=== PATIENT | male | born 1950 | race Hispanic/Latino ===

== ENCOUNTER 2018-10-05 23:35 | Inpatient (IN) | payer MEDICARE ==
--- NOTE | 2018-10-05 23:54 | Emergency Department Report ---
ED Chest Pain HPI - General Chief Complaint: Chest Pain Stated Complaint: CHEST PAIN Time Seen by Provider: 10/05/18 23:40 Source: EMS Mode of arrival: Stretcher Limitations: No Limitations - History of Present Illness Initial Comments: 68-year-old male with a past medical history of cardiac valve replacement and COPD presents from [facility] with complaints of chest pain. Chest pain began while trying to go to sleep prior to arrival. He still describes it as feeling like he was kicked in the left side of his chest. He had a second episode described as sharp prior to arrival. He denies shortness of breath, nausea, vomiting, diaphoresis, or syncope. Patient is hard of hearing and extremely poor historian. As per his history and physical examination from [facility] dated 10/09/2018 he has a history of heart valve replacement and Coumadin use. Patient does not recall having a heart valve replaced despite sternotomy scar and thinks he is on Coumadin because his blood is too thick. Patient received Ativan 0.5 mg by mouth prior to arrival provided by [facility]. Patient is unsure as to why he is currently at [facility] and denies suicidal ideation, homicidal ideation, or active psychosis. There is a sitter at the bedside.No pain reported at this time - Related Data Home Medications Medication Instructions Recorded Confirmed Last Taken ALBUTEROL Inhaler(NF) [VENTOLIN 2 puff INHALATION Q6HR PRN 10/06/18 10/06/18 Unknown Inhaler(NF)] Acetaminophen 2 tab PO Q4HR PRN 10/06/18 10/06/18 Unknown DUONEB *Not for PRN Use* 1 vial INHALATION Q8HR PRN 10/06/18 10/06/18 Unknown Haloperidol [Haldol] 5 mg PO Q4HR PRN 10/06/18 10/06/18 Unknown Magnesium Hydroxide [Milk of 30 ml PO Q2HR PRN 10/06/18 10/06/18 Unknown Magnesia] diphenhydrAMINE [Benadryl CAP] 50 mg PO Q4HR PRN 10/06/18 10/06/18 Unknown risperiDONE [Risperdal] 0.5 mg PO DAILY 10/06/18 10/06/18 Unknown risperiDONE [Risperdal] 1 mg PO HS 10/06/18 10/06/18 Unknown Allergies Allergy/AdvReac Type Severity Reaction Status Date / Time levofloxacin [From Levaquin] Allergy Unknown Verified 10/05/18 23:42 Penicillins Allergy Unknown Verified 10/05/18 23:42 Heart Score - HEART Score History: Slightly suspicious EKG: Non-specific Age: > 65 Risk factors: 1-2 risk factors Troponin: 1-3x normal limit HEART Score: 5 ED Review of Systems ROS: Stated complaint: CHEST PAIN Other details as noted in HPI Comment: All other systems reviewed and negative ED Past Medical Hx - Past Medical History Hx COPD: Yes - Surgical History Past Surgical History?: Yes Additional Surgical History: heart valve replacement - Social History Smoking Status: Current Every Day Smoker Substance Use Type: None - Medications Home Medications: Home Medications Medication Instructions Recorded Confirmed Last Taken Type ALBUTEROL Inhaler(NF) [VENTOLIN 2 puff INHALATION Q6HR PRN 10/06/18 10/06/18 Unknown History Inhaler(NF)] Acetaminophen 2 tab PO Q4HR PRN 10/06/18 10/06/18 Unknown History DUONEB *Not for PRN Use* 1 vial INHALATION Q8HR PRN 10/06/18 10/06/18 Unknown History Haloperidol [Haldol] 5 mg PO Q4HR PRN 10/06/18 10/06/18 Unknown History Magnesium Hydroxide [Milk of 30 ml PO Q2HR PRN 10/06/18 10/06/18 Unknown History Magnesia] diphenhydrAMINE [Benadryl CAP] 50 mg PO Q4HR PRN 10/06/18 10/06/18 Unknown History risperiDONE [Risperdal] 0.5 mg PO DAILY 10/06/18 10/06/18 Unknown History risperiDONE [Risperdal] 1 mg PO HS 10/06/18 10/06/18 Unknown History ED Physical Exam - General Limitations: No Limitations - Other Other exam information: General: No limitations, patient is alert in no acute distress Head exam: Atraumatic, normocephalic Eyes exam: Normal appearance, ENT: Moist mucous membrane Neck exam: Normal inspection, full range of motion, no meningismus nontender Respiratory exam: Clear to auscultation bilateral, no wheezes, rales, crackles Cardiovascular: Normal rate and rhythm, positive murmur, sternotomy scar Abdomen: Soft, nondistended, and nontender, with normal bowel sounds, no rebound, or guarding Extremity: Full range of motion normal inspection no deformity, no calf tenderness or edema Back: Normal Inspection, full range of motion, no tenderness Neurologic: Alert, oriented x3, cranial nerves intact, no motor or sensory deficit Psychiatric: normal affect, normal mood Skin: Warm, dry, intact ED Course Vital Signs 10/05/18 10/05/18 10/06/18 23:50 23:54 01:17 Temperature 98.2 F Pulse Rate 79 72 Respiratory 15 15 Rate Blood Pressure 151/72 Blood Pressure 151/72 [Left] O2 Sat by Pulse 100 Oximetry - Consultations Consultation #1: 10/06/18 01:35 Case d/w cardiology Dr Zepeda, consult ordered KARYN score - Karyn Score Age > 65: (0) No Aspirin use within the Past 7 Days: (0) No 3 or more CAD Risk Factors: (0) No 2 or more Angina events in past 24 hrs: (1) Yes Known CAD with more than 50% Stenosis: (0) No Elevated Cardiac Markers: (1) Yes ST Deviation Greater than 0.5mm: (0) No KARYN Score: 2 ED Medical Decision Making - Lab Data Result diagrams: 10/06/18 00:09 10/06/18 00:09 Lab Results 10/06/18 10/06/18 10/06/18 Range/Units 00:09 00:09 00:09 WBC 10.5 (4.5-11.0) K/mm3 RBC 4.33 (3.65-5.03) M/mm3 Hgb 13.4 (11.8-15.2) gm/dl Hct 39.3 (35.5-45.6) % MCV 91 (84-94) fl MCH 31 (28-32) pg MCHC 34 (32-34) % RDW 14.6 (13.2-15.2) % Plt Count 272 (140-440) K/mm3 Lymph % (Auto) 17.8 (13.4-35.0) % [place] % (Auto) 8.8 H (0.0-7.3) % Eos % (Auto) 1.8 (0.0-4.3) % Baso % (Auto) 1.4 (0.0-1.8) % Lymph # 1.9 (1.2-5.4) K/mm3 [place] # 0.9 H (0.0-0.8) K/mm3 Eos # 0.2 (0.0-0.4) K/mm3 Baso # 0.1 (0.0-0.1) K/mm3 Seg Neutrophils % 70.2 H (40.0-70.0) % Seg Neutrophils # 7.4 (1.8-7.7) K/mm3 PT 12.8 (12.2-14.9) Sec. INR 0.91 (0.87-1.13) APTT 34.8 (24.2-36.6) Sec. Sodium 140 (137-145) mmol/L Potassium 4.1 (3.6-5.0) mmol/L Chloride 104.6 (98-107) mmol/L Carbon Dioxide 26 (22-30) mmol/L Anion Gap 14 mmol/L BUN 14 (9-20) mg/dL Creatinine 0.9 (0.8-1.5) mg/dL Estimated GFR > 60 ml/min BUN/Creatinine Ratio 16 % Glucose 111 H (75-100) mg/dL Calcium 8.7 (8.4-10.2) mg/dL Total Creatine Kinase 74 (55-170) units/L CK-MB (CK-2) 2.2 (0.0-4.0) ng/mL CK-MB (CK-2) Rel Index 2.9 (0-4) Troponin T 0.802 H* (0.00-0.029) ng/mL Triglycerides 57 (2-149) mg/dL Cholesterol 156 (50-199) mg/dL LDL Cholesterol Direct 106 (50-130) mg/dL HDL Cholesterol 46 (40-59) mg/dL Cholesterol/HDL Ratio 3.39 % - EKG Data -: EKG Interpreted by Tx EKG shows normal: sinus rhythm, axis (qrs 48), QRS complexes (qrsd 89), ST-T waves (no stemi, possbile anteroseptal infarct) Rate: normal (69) - EKG Data When compared to previous EKG there are: previous EKG unavailable - Radiology Data Radiology results: report reviewed PROCEDURE: XR CHEST 1V AP TECHNIQUE: Chest radiograph single view. HISTORY: Chest Pain COMPARISONS: None . FINDINGS: Heart: Normal. Mediastinum/Vessels: Multiple sternal wires are present. Lungs/Pleural space: Normal. Bony thorax: No acute osseous abnormality. Life support devices: None. IMPRESSION: No acute cardiopulmonary abnormality. - Medical Decision Making Pt poor insight about his previous past medical history and reason for sternotomy. Medical records provided by psych states that patient has had a valve replacement and has been on Coumadin. Coags are normal today. Patient treated with nitroglycerin paste, aspirin, heparin drip, and cardiology consultation for mild elevation in troponin with associated chest pain. No signs of ST elevation or renal insufficiency. repeat troponin pending as per protocol - Differential Diagnosis CA, unstable angina, PE, atypical chest Critical Care Time: No Critical care attestation.: If time is entered above; I have spent that time in minutes in the direct care of this critically ill patient, excluding procedure time. ED Disposition Clinical Impression: Chest pain, Elevated troponin, Psychiatric inpatient, History of heart valve replacement Disposition: OP ADMIT IP TO THIS HOSP Is pt being admited?: Yes Does the pt Need Aspirin: Yes Condition: Stable Time of Disposition: 01:49 (Dr Osei/hosp)
--- NOTE | 2018-10-06 00:35 | XRay Report ---
PROCEDURE: XR CHEST 1V AP TECHNIQUE: Chest radiograph single view. HISTORY: Chest Pain COMPARISONS: None . FINDINGS: Heart: Normal. Mediastinum/Vessels: Multiple sternal wires are present. Lungs/Pleural space: Normal. Bony thorax: No acute osseous abnormality. Life support devices: None. IMPRESSION: No acute cardiopulmonary abnormality. This document is electronically signed by Jannette Sparks DO., October 06 2018 12:33:16 AM ET
[2018-10-06 00:45] LABS: Creatine Kinase MB 2.2 ng/mL (0.0-4.0)
[2018-10-06 00:47] LABS: BUN/Creatinine Ratio 16; Blood Urea Nitrogen 14 mg/dL (9-20); Calcium 8.7 mg/dL (8.4-10.2); Hemolysis Index 3
[2018-10-06] MEDS ORDERED: ASPIRIN PO ONE ×3 (01:01→10:15)
[2018-10-06] MEDS ORDERED: NITRO-BID 2% TP ONE (01:02)
[2018-10-06 01:35] LABS: Basophils # (Auto) 0.1 K/mm3 (0.0-0.1); Basophils % (Auto) 1.4 % (0.0-1.8); Eosinophils # (Auto) 0.2 K/mm3 (0.0-0.4); Eosinophils % (Auto) 1.8 % (0.0-4.3); Hematocrit 39.3 % (35.5-45.6); Hemoglobin 13.4 gm/dl (11.8-15.2); INR 0.91 (0.87-1.13); Lymphocytes # (Auto) 1.9 K/mm3 (1.2-5.4); Lymphocytes % (Auto) 17.8 % (13.4-35.0); Mean Corpuscular HGB Conc 34 % (32-34); Mean Corpuscular Volume 91 fl (84-94); Monocytes # (Auto) 0.9 K/mm3 (0.0-0.8); Monocytes % (Auto) 8.8 % (0.0-7.3); Platelet Count 272 K/mm3 (140-440); Red Blood Count 4.33 M/mm3 (3.65-5.03); Red Cell Distribution Width 14.6 % (13.2-15.2)
[2018-10-06 01:36] LABS: Partial Thromboplastin Time 34.8 Sec. (24.2-36.6)
[2018-10-06 01:37] LABS: Chol/HDL Ratio 3.39 %; HDL Cholesterol 46 mg/dL (40-59); LDL Cholesterol,Direct 106 mg/dL (50-130)
[2018-10-06] MEDS ORDERED: HEPARIN 10,000 UNITS/10 ML IV ONE (01:37)
[2018-10-06] MEDS ORDERED: HEPARIN/ 0.45% NACL-25,000 UNIT/500 ML 25,000 UNIT/500 ML BAG IV SCH (02:00)
--- NOTE | 2018-10-06 02:17 | History and Physical Report ---
History of Present Illness Date of examination: 10/06/18 History of present illness: 68-year-old man with a history of COPD, valve replacement on Coumadin comes emergency room from [facility] with complaints of chest pain. Pain is on the left chest which she described as pressure sensation, intermittent every 2 minutes, no radiation, intensity 6/10, cannot identify exacerbating or relieving factors. He admits to nausea, diaphoresis, no shortness breath, palpitations. Patient is at [place] [id number] for psychosis Review of systems Constitutional: no weight loss, chills, fever Ears, eyes, nose, mouth and throat: no nasal congestion, no nasal discharge, no sinus pressure, no vision change, no red eye. Neck: No neck pain or rigidity. Cardiovascular: no palpitations, +chest pain Respiratory: no cough, shortness of breath Gastrointestinal: no hematochezia, abdominal pain Genitourinary : no frequency , no hematuria Musculoskeletal: no joint swelling or muscle ache Integumentary: no rash, no pruritis Neurological: no parathesias, no focal weakness Endocrine: no cold or heat intolerance, no polyuria or polydipsia Hematologic/Lymphatic: no easy bruising, no easy bleeding, no gland swelling Allergic/Immunologic: no urticaria, no angioedema. PAST MEDICAL HISTORY:COPD, valve replacement on Coumadin PAST SURGICAL HISTORY: Hip replacement 2, bowel surgery SOCIAL HISTORY: Denies alcohol, + marijuana and, smokes half pack a day FAMILY HISTORY: Hypertension Medications and Allergies Allergies Allergy/AdvReac Type Severity Reaction Status Date / Time levofloxacin [From Levaquin] Allergy Unknown Verified 10/05/18 23:42 Penicillins Allergy Unknown Verified 10/05/18 23:42 Home Medications Medication Instructions Recorded Confirmed Last Taken Type ALBUTEROL Inhaler(NF) [VENTOLIN 2 puff INHALATION Q6HR PRN 10/06/18 10/06/18 Unknown History Inhaler(NF)] Acetaminophen 2 tab PO Q4HR PRN 10/06/18 10/06/18 Unknown History DUONEB *Not for PRN Use* 1 vial INHALATION Q8HR PRN 10/06/18 10/06/18 Unknown History Haloperidol [Haldol] 5 mg PO Q4HR PRN 10/06/18 10/06/18 Unknown History Magnesium Hydroxide [Milk of 30 ml PO Q2HR PRN 10/06/18 10/06/18 Unknown History Magnesia] diphenhydrAMINE [Benadryl CAP] 50 mg PO Q4HR PRN 10/06/18 10/06/18 Unknown Histo ry risperiDONE [Risperdal] 0.5 mg PO DAILY 10/06/18 10/06/18 Unknown History risperiDONE [Risperdal] 1 mg PO HS 10/06/18 10/06/18 Unknown History Active Meds: Active Medications Heparin Sodium/Sodium Chloride (Heparin/ 0.45% Nacl-25,000 Unit/500 Ml) 25,000 unit in 500 mls @ 20 mls/hr IV TITRATE MILLI; Protocol Last Admin: 10/06/18 02:00 Dose: 1,000 units/hr, 20 mls/hr Documented by: Exam - Physical Exam Narrative exam: General Apperance: The patient lying in bed, breathing comfortable HEENT: Normocephalic, atraumatic. Pupils equally round and reactive to light, EOMI, no sclericterus or JVD or thyromegaly or nodule. , no carotid bruit, mucous membranes moist, no exudate or erythema Heart: S1-S2, regular is rhythm Lungs: Clear to auscultation bilaterally, breathing comfortable Abdomen: Positive bowel sounds, soft, nontender, nondistended, no organomegaly Extremities: No edema cyanosis clubbing Skin: no rash, nodule, warm and dry Neuro: cranial nerves 2-12 intact, speech is fluent, motor/sensory intact - Constitutional Vitals: Temp Pulse Resp BP Pulse Ox 98.2 F 76 19 151/72 100 10/05/18 23:54 10/06/18 02:01 10/06/18 02:01 10/06/18 02:01 10/05/18 23:54 Results - Labs CBC & Chem 7: 10/06/18 00:09 10/06/18 00:09 Labs: Abnormal lab results 10/06/18 10/06/18 Range/Units 00:09 00:09 [place] % (Auto) 8.8 H (0.0-7.3) % [place] # 0.9 H (0.0-0.8) K/mm3 Seg Neutrophils % 70.2 H (40.0-70.0) % Glucose 111 H (75-100) mg/dL Troponin T 0.802 H* (0.00-0.029) ng/mL - Imaging and Cardiology EKG: image reviewed Chest x-ray: report reviewed Assessment and Plan Assessment NSTMI ValVE replacement with subtherapeutic INR COPD Psychosis Plan Admit to medicine Check cardiac enzymes, consult cardiology Start aspirin, [place] 1013 DVT prophylaxis
[2018-10-06] MEDS ORDERED: SODIUM CHLORIDE FLUSH SYRINGE 10 ML IV PRN (02:37)
[2018-10-06] MEDS ORDERED: TYLENOL PO PRN (02:37)
[2018-10-06] MEDS ORDERED: ZOFRAN IV PRN (02:37)
[2018-10-06 03:01] LABS: Basophils # (Auto) 0.2 K/mm3 (0.0-0.1); Basophils % (Auto) 2.4 % (0.0-1.8); Eosinophils # (Auto) 0.2 K/mm3 (0.0-0.4); Eosinophils % (Auto) 1.7 % (0.0-4.3); Hematocrit 39.1 % (35.5-45.6); Hemoglobin 13.2 gm/dl (11.8-15.2); Lymphocytes # (Auto) 2.3 K/mm3 (1.2-5.4); Lymphocytes % (Auto) 22.4 % (13.4-35.0); Mean Corpuscular HGB Conc 34 % (32-34); Mean Corpuscular Volume 92 fl (84-94); Monocytes # (Auto) 0.9 K/mm3 (0.0-0.8); Monocytes % (Auto) 8.8 % (0.0-7.3); Platelet Count 269 K/mm3 (140-440); Red Blood Count 4.27 M/mm3 (3.65-5.03); Red Cell Distribution Width 14.6 % (13.2-15.2)
[2018-10-06 03:25] LABS: BUN/Creatinine Ratio 17; Blood Urea Nitrogen 12 mg/dL (9-20); Calcium 8.5 mg/dL (8.4-10.2); Hemolysis Index 8
[2018-10-06 03:55] LABS: Creatine Kinase MB 2.2 ng/mL (0.0-4.0)
[2018-10-06] MEDS: BABY ASPIRIN PO SCH (09:57)
[2018-10-06] MEDS ORDERED: NACL 0.9% 500 ML 500 ML IV SCH (10:00)
[2018-10-06] MEDS: SODIUM CHLORIDE FLUSH SYRINGE 10 ML IV SCH ×2 (10:06→22:30)
[2018-10-06] MEDS ORDERED: HEPARIN 10,000 UNITS/10 ML ONE (10:16)
[2018-10-06] MEDS ORDERED: CALAN ONE (10:16)
[2018-10-06] MEDS ORDERED: HEPARIN/NS 5000 UNIT/500ML(CATH LAB) 1,000 ML IR ONE (10:16)
[2018-10-06] MEDS ORDERED: XYLOCAINE 2% INFILTRATI ONE (10:17)
[2018-10-06] MEDS ORDERED: NITROGLYCERIN SYRINGE 3 ML ONE ×2 (10:17→12:01)
[2018-10-06] MEDS ORDERED: VERSED ONE ×2 (10:22→11:41)
[2018-10-06] MEDS ORDERED: SUBLIMAZE ONE ×2 (10:22→11:41)
[2018-10-06] MEDS ORDERED: NACL 0.9% 500 ML 500 ML ONE (10:23)
--- NOTE | 2018-10-06 11:00 | Consultation ---
History of Present Illness Consult date: 10/06/18 Requesting physician: ANA MARÍA IZAGUIRRE Consult reason: chest pain History of present illness: He claims that he started experiencing intermittent precordial chest pain associated with diaphoresis lasst night. Although he has a median sternotomy scar and sternotomy wires on CXR, he does not recall undergoing any cardiac s urgery. Past History Past Medical History: other (GI bleed, cardiac surgery) Past Surgical History: total hip replacement Social history: denies: smoking, alcohol abuse Family history: no significant family history Medications and Allergies Allergies Allergy/AdvReac Type Severity Reaction Status Date / Time levofloxacin [From Levaquin] Allergy Unknown Verified 10/05/18 23:42 Penicillins Allergy Unknown Verified 10/05/18 23:42 Home Medications Medication Instructions Recorded Confirmed Last Taken Type ALBUTEROL Inhaler(NF) [VENTOLIN 2 puff INHALATION Q6HR PRN 10/06/18 10/06/18 Unknown History Inhaler(NF)] Acetaminophen 2 tab PO Q4HR PRN 10/06/18 10/06/18 Unknown History DUONEB *Not for PRN Use* 1 vial INHALATION Q8HR PRN 10/06/18 10/06/18 Unknown History Haloperidol [Haldol] 5 mg PO Q4HR PRN 10/06/18 10/06/18 Unknown History Magnesium Hydroxide [Milk of 30 ml PO Q2HR PRN 10/06/18 10/06/18 Unknown History Magnesia] diphenhydrAMINE [Benadryl CAP] 50 mg PO Q4HR PRN 10/06/18 10/06/18 Unknown History risperiDONE [Risperdal] 0.5 mg PO DAILY 10/06/18 10/06/18 Unknown History risperiDONE [Risperdal] 1 mg PO HS 10/06/18 10/06/18 Unknown History Active Meds: Active Medications Acetaminophen (Tylenol) 650 mg PO Q4H PRN PRN Reason: Pain MILD(1-3)/Fever >100.5/ALFONSO Aspirin (Baby Aspirin) 81 mg PO QDAY MILLI Last Admin: 10/06/18 09:57 Dose: Not Given Documented by: Heparin Sodium/Sodium Chloride (Heparin/ 0.45% Nacl-25,000 Unit/500 Ml) 25,000 unit in 500 mls @ 20 mls/hr IV TITRATE MILLI; Protocol Last Titration: 10/06/18 09:49 Dose: 1,000 units/hr, 20 mls/hr Documented by: Sodium Chloride (Nacl 0.9% 500 Ml) 500 mls @ 50 mls/hr IV DIRECT MILLI Stop: 10/06/18 19:59 Ondansetron HCl (Zofran) 4 mg IV Q4H PRN PRN Reason: Nausea And Vomiting Oxycodone/Acetaminophen (Percocet 5/325) 1 tab PO Q6H PRN PRN Reason: Pain, Moderate (4-6) Sodium Chloride (Sodium Chloride Flush Syringe 10 Ml) 10 ml IV BID IMLLI Last Admin: 10/06/18 10:06 Dose: Not Given Documented by: Sodium Chloride (Sodium Chloride Flush Syringe 10 Ml) 10 ml IV PRN PRN PRN Reason: LINE FLUSH Review of Systems Constitutional: no fever, no chills Ears, nose, mouth and throat: no ear pain, no ear discharge, no sore throat Cardiovascular: chest pain Respiratory: no cough, no hemoptysis, no shortness of breath Gastrointestinal: no abdominal pain, no nausea, no vomiting, no diarrhea, no constipation Genitourinary Male: no dysuria, no urinary frequency Musculoskeletal: no neck stiffness, no neck pain, no myalgias Integumentary: no rash Neurological: no weakness, no parathesias, no headaches Endocrine: no cold intolerance, no heat intolerance Hematologic/Lymphatic: no easy bruising, no easy bleeding Allergic/Immunologic: no urticaria, no wheezing Physical Examination Vital Signs Last Vital Signs Temp 98.2 F 10/05/18 23:54 Pulse 61 10/06/18 07:41 Resp 19 10/06/18 07:41 BP 103/51 10/06/18 07:41 Pulse Ox 97 10/06/18 09:33 General appearance: no acute distress HEENT: Positive: EOMI, Normocephaly, Mucus Membranes Moist Neck: Positive: neck supple, trachea midline, Carotid Upstroke (full) Cardiac: Positive: Reg Rate and Rhythm, S1/S2 Lungs: Positive: clear to auscultation Neuro: Positive: Grossly Intact Abdomen: Positive: Soft, Active Bowel Sounds. Negative: Tender Skin: Positive: Clear. Negative: Rash Musculoskeletal: Normal Range of Motion Extremities: Present: normal. Absent: edema Results 10/06/18 02:48 10/06/18 02:48 Cardiac Enzymes 10/06/18 10/06/18 10/06/18 Range/Units 00:09 02:48 08:01 CK-MB (CK-2) 2.2 2.2 2.0 (0.0-4.0) ng/mL Coagulation 10/06/18 Range/Units 00:09 PT 12.8 (12.2-14.9) Sec. INR 0.91 (0.87-1.13) APTT 34.8 (24.2-36.6) Sec. Lipids 10/06/18 Range/Units 00:09 Triglycerides 57 (2-149) mg/dL Cholesterol 156 (50-199) mg/dL HDL Cholesterol 46 (40-59) mg/dL Cholesterol/HDL Ratio 3.39 % CBC 10/06/18 10/06/18 Range/Units 00:09 02:48 WBC 10.5 10.2 (4.5-11.0) K/mm3 RBC 4.33 4.27 (3.65-5.03) M/mm3 Hgb 13.4 13.2 (11.8-15.2) gm/dl Hct 39.3 39.1 (35.5-45.6) % Plt Count 272 269 (140-440) K/mm3 Lymph # 1.9 2.3 (1.2-5.4) K/mm3 [place] # 0.9 H 0.9 H (0.0-0.8) K/mm3 Eos # 0.2 0.2 (0.0-0.4) K/mm3 Baso # 0.1 0.2 H (0.0-0.1) K/mm3 Comprehensive Metabolic Panel 10/06/18 10/06/18 Range/Units 00:09 02:48 Sodium 140 138 (137-145) mmol/L Potassium 4.1 4.0 (3.6-5.0) mmol/L Chloride 104.6 104.4 (98-107) mmol/L Carbon Dioxide 26 22 (22-30) mmol/L BUN 14 12 (9-20) mg/dL Creatinine 0.9 0.7 L (0.8-1.5) mg/dL Glucose 111 H 110 H (75-100) mg/dL Calcium 8.7 8.5 (8.4-10.2) mg/dL - Imaging and Cardiology EKG: image reviewed EKG interpretations - Telemetry EKG Rhythm: Sinus Rhythm - EKG Sinus rhythms and dysrhythmias: sinus rhythm Supraventricular dysrhythmia: atrial premature complexe Assessment and Plan Initiate anti-ischemic regimen. Schedule coronary angiography. - Patient Problems (1) Acute non-ST elevation myocardial infarction (NSTEMI) Current Visit: Yes Status: Acute (2) Chest pain Current Visit: Yes Status: Acute Qualifiers: Chest pain type: precordial pain Qualified Code(s): R07.2 - Precordial pain (3) Thrombocytopenia Current Visit: Yes Status: Acute (4) History of open heart surgery Current Visit: Yes Status: Chronic (5) H/O: GI bleed Current Visit: Yes Status: Chronic (6) Psychiatric inpatient Current Visit: Yes Status: Acute
--- NOTE | 2018-10-06 11:36 | Progress Note ---
Hospitalist Physical - Physical exam Narrative exam: GEN: Not in acute distress, lying in bed HEENT: Normocephalic, atraumatic, Neck: supple, No JVD Lungs: Clear to auscultation bilat, no crackles, no wheeze Abd:soft, non tender, non distended, normal bowel sounds Ext: No edema, no clubbing, no cyanosis Neuro:Awake,alert,oriented X 3, no focal signs Skin:No rash Psych: normal mood - Constitutional Vitals: Temp Pulse Resp BP Pulse Ox 98.2 F 61 19 103/51 97 10/05/18 23:54 10/06/18 07:41 10/06/18 07:41 10/06/18 07:41 10/06/18 09:33 General appearance: Present: no acute distress Results - Labs CBC & Chem 7: 10/06/18 02:48 10/06/18 02:48 Labs: Laboratory Last Values WBC 10.2 K/mm3 (4.5-11.0) 10/06/18 02:48 RBC 4.27 M/mm3 (3.65-5.03) 10/06/18 02:48 Hgb 13.2 gm/dl (11.8-15.2) 10/06/18 02:48 Hct 39.1 % (35.5-45.6) 10/06/18 02:48 MCV 92 fl (84-94) 10/06/18 02:48 MCH 31 pg (28-32) 10/06/18 02:48 MCHC 34 % (32-34) 10/06/18 02:48 RDW 14.6 % (13.2-15.2) 10/06/18 02:48 Plt Count 269 K/mm3 (140-440) 10/06/18 02:48 Lymph % (Auto) 22.4 % (13.4-35.0) 10/06/18 02:48 [place] % (Auto) 8.8 % (0.0-7.3) H 10/06/18 02:48 Eos % (Auto) 1.7 % (0.0-4.3) 10/06/18 02:48 Baso % (Auto) 2.4 % (0.0-1.8) H 10/06/18 02:48 Lymph # 2.3 K/mm3 (1.2-5.4) 10/06/18 02:48 [place] # 0.9 K/mm3 (0.0-0.8) H 10/06/18 02:48 Eos # 0.2 K/mm3 (0.0-0.4) 10/06/18 02:48 Baso # 0.2 K/mm3 (0.0-0.1) H 10/06/18 02:48 Seg Neutrophils % 64.7 % (40.0-70.0) 10/06/18 02:48 Seg Neutrophils # 6.6 K/mm3 (1.8-7.7) 10/06/18 02:48 PT 12.8 Sec. (12.2-14.9) 10/06/18 00:09 INR 0.91 (0.87-1.13) 10/06/18 00:09 APTT 34.8 Sec. (24.2-36.6) 10/06/18 00:09 Heparin Anti-Xa Level 0.35 U.I./ml (0.3-0.7) 10/06/18 08:01 Sodium 138 mmol/L (137-145) 10/06/18 02:48 Potassium 4.0 mmol/L (3.6-5.0) 10/06/18 02:48 Chloride 104.4 mmol/L (98-107) 10/06/18 02:48 Carbon Dioxide 22 mmol/L (22-30) 10/06/18 02:48 Anion Gap 16 mmol/L 10/06/18 02:48 BUN 12 mg/dL (9-20) 10/06/18 02:48 Creatinine 0.7 mg/dL (0.8-1.5) L 10/06/18 02:48 Estimated GFR > 60 ml/min 10/06/18 02:48 BUN/Creatinine Ratio 17 % 10/06/18 02:48 Glucose 110 mg/dL (75-100) H 10/06/18 02:48 Calcium 8.5 mg/dL (8.4-10.2) 10/06/18 02:48 Total Creatine Kinase 64 units/L (55-170) 10/06/18 08:01 CK-MB (CK-2) 2.0 ng/mL (0.0-4.0) 10/06/18 08:01 CK-MB (CK-2) Rel Index 3.1 (0-4) 10/06/18 08:01 Troponin T 0.633 ng/mL (0.00-0.029) H* 10/06/18 08:01 Triglycerides 57 mg/dL (2-149) 10/06/18 00:09 Cholesterol 156 mg/dL (50-199) 10/06/18 00:09 LDL Cholesterol Direct 106 mg/dL (50-130) 10/06/18 00:09 HDL Cholesterol 46 mg/dL (40-59) 10/06/18 00:09 Cholesterol/HDL Ratio 3.39 % 10/06/18 00:09
[2018-10-06] MEDS ORDERED: ALUM-MAG HYDROX-SIMETH 200-200-20MG/5ML ONE (12:13)
[2018-10-06] MEDS ORDERED: PLAVIX ONE (12:13)
--- NOTE | 2018-10-06 13:24 | Cardiac Catherization Report ---
LEFT HEART CATHETERIZATION/PERCUTANEOUS CORONARY INTERVENTION/INTRAVASCULAR ULTRASOUND CLINICAL INFORMATION: This is a 68-year-old patient, who was at [facility] and complaints of chest pain, was brought in and had abnormal troponin suggestive of [id number] MT with some shortness of breath with acute diastolic dysfunction. The patient brought to the photo lab manager. Currently, chest pain free. The patient is a poor historian, but looks like he had sternotomy wires placed in and the patient was done under moderate sedation, 1 mg Versed, and 50 mcg of fentanyl. Total sedation time was 32 minutes, started at 11:39 a.m., finished at 12:13 p.m. Left heart catheterization performed via the right femoral artery, sterile technique, local anesthesia, and a 5-[place] groin sheath inserted. We see on fluoroscopy, a mechanical aortic valve that is single leaflet that is opening. Left system engaged with a JL4 catheter. Left main is large and patent, bifurcates into large LAD that is patent from proximally and distally. Diagonal 1, diagonal 2 and diagonal 3 are small caliber vessel, patent. Circumflex is a jidio-er-fukaos caliber vessel, moderate to severe tortuosity patent. OM1 and OM2 are small caliber vessels, patent with moderate to severe tortuosity. RCA engaged with JR4, is a large dominant vessel with moderate tortuosity, proximal is patent, mid 90% distal at the bifurcation has a 95% lesion going to a large caliber PDA, PLV and a small PDA. LV gram done with a mechanical aortic valve. So, percutaneous/intravascular stent of the RCA. 1. Exchange of 5-[place] sheath for a 6-[place] African sheath. 2. Engaged with a 6-[place] JR4 guiding catheter. 3. Crossed into the distal PLV with a short [place] wire. 4. An intravascular ultrasound showed distal reference vessel 3.5 x 4 with a significant stenosis of 90% in the distal and mid right coronary artery. 5. Indirect stent to distal right coronary artery with a drug-eluting Resolute Ace 3.5 x 12 at 15 atmospheres. 6. In-stent to the mid right coronary artery with a drug-eluting Xience Shannan 3.5 x 12 at 18 atmospheres. Excellent angiographic result. Repeat IVUS showed good stent apposition and expansion noted. Removed coronary wire, multiple angiograms, showed reduced stenosis from 90% down to 0 with no dissection or perforation and continue KARYN 3 flow. 7. A 6-[place] guiding catheter taken over guidewire, 6-[place] groin sheath sewn in. No hematoma, no bleeding. SUMMARY: 1. Successful PCI of the mid RCA with a drug-eluting Xience Shannan 3.5 x 12 at 18 atmospheres and distal RCA with a drug-eluting Resolute [place] 3.5 x 12 at 15 atmospheres. 2. Left main patent, LAD patent, circ patent. Small vessels, diagonal patent and small OM1 is patent. Mechanical aortic valve with a single leaflet. 3. The patient will be on aspirin and Plavix 600 was loaded, will be on aspirin 81, Plavix 75, and Coumadin. The patient is currently chest pain free, tolerated procedure well and aortic pressure is 137/63 mmHg. JOB# [id number] LAKESHIA/ADRY
--- NOTE | 2018-10-06 16:38 | Event Note ---
Date: 10/06/18 I have seen and examined patient today. he presents with chest pain. For cardiac cath today.
[2018-10-06] MEDS: COUMADIN PO SCH (18:22)
[2018-10-06] MEDS: LOPRESSOR PO SCH (22:33)
[2018-10-07] MEDS: PERCOCET 5/325 PO PRN ×2 (05:30→17:27)
[2018-10-07 06:48] LABS: Basophils # (Auto) 0.1 K/mm3 (0.0-0.1); Basophils % (Auto) 1.3 % (0.0-1.8); Eosinophils # (Auto) 0.2 K/mm3 (0.0-0.4); Hematocrit 38.7 % (35.5-45.6); Hemoglobin 13.1 gm/dl (11.8-15.2); Lymphocytes # (Auto) 0.5 K/mm3 (1.2-5.4); Lymphocytes % (Auto) 6.6 % (13.4-35.0); Mean Corpuscular HGB Conc 34 % (32-34); Mean Corpuscular Volume 91 fl (84-94); Monocytes # (Auto) 0.8 K/mm3 (0.0-0.8); Monocytes % (Auto) 10.3 % (0.0-7.3); Platelet Count 265 K/mm3 (140-440); Red Blood Count 4.24 M/mm3 (3.65-5.03); Red Cell Distribution Width 14.5 % (13.2-15.2)
[2018-10-07 07:00] LABS: INR 0.95 (0.87-1.13)
[2018-10-07 07:06] LABS: Creatine Kinase MB 1.2 ng/mL (0.0-4.0)
[2018-10-07 07:07] LABS: BUN/Creatinine Ratio 13; Blood Urea Nitrogen 12 mg/dL (9-20); Calcium 8.6 mg/dL (8.4-10.2); Hemolysis Index 4
--- NOTE | 2018-10-07 08:23 | XRay Report ---
AP CHEST: HISTORY: Post PCI The lungs are hyperinflated but clear. No evidence for pneumothorax or pleural fluid. Heart and mediastinal structures are within normal limits. Previous CABG changes are suspected. IMPRESSION: Hyperinflated lungs. No acute process.
--- NOTE | 2018-10-07 11:41 | Progress Note ---
Assessment and Plan S/p C with PCI of RCA x 2 yesterday. Pt also noted to have mechanical aortic valve. Currently stable cardiac status. Cont present cardiac management, including ASA 81, Plavix, coumadin, lopressor, lipitor. Pt may discharge from cardiology standpoint. Follow up in our [place] office with Dr. Kendall on 10/23/2018 @ 1:30PM. The patient has been seen in conjunction with Dr. Kendall who agrees with the assessment and plan of care. - Patient Problems (1) Acute non-ST elevation myocardial infarction (NSTEMI) Current Visit: Yes Status: Acute (2) CAD (coronary artery disease) Current Visit: Yes Status: Chronic (3) Stented coronary artery Current Visit: Yes Status: Chronic (4) History of open heart surgery Current Visit: Yes Status: Chronic (5) H/O mechanical aortic valve replacement Current Visit: Yes Status: Chronic (6) Thrombocytopenia Current Visit: Yes Status: Acute (7) H/O: GI bleed Current Visit: Yes Status: Chronic (8) Psychiatric inpatient Current Visit: Yes Status: Acute Subjective Date of service: 10/07/18 Principal diagnosis: NSTEMI Interval history: pt resting in bed, no current complaints. states he is feeling well. Objective Last Vital Signs Temp 98 F 10/06/18 21:00 Pulse 86 10/06/18 21:00 Resp 18 10/06/18 17:00 BP 115/58 10/06/18 21:00 Pulse Ox 94 10/07/18 10:00 - Physical Examination General: No Apparent Distress HEENT: Positive: EOMI, Normocephaly, Mucus Membranes Moist Neck: Positive: neck supple, trachea midline, Carotid Upstroke (full) Cardiac: Positive: Reg Rate and Rhythm, S1/S2, Systolic Murmur Lungs: Positive: Decreased Breath Sounds Neuro: Positive: Grossly Intact Abdomen: Positive: Soft, Active Bowel Sounds. Negative: Tender Skin: Positive: Clear. Negative: Rash Musculoskeletal: Normal Range of Motion Extremities: Present: normal. Absent: edema - Labs and Meds Cardiac Enzymes 10/07/18 Range/Units 06:25 CK-MB (CK-2) 1.2 (0.0-4.0) ng/mL Coagulation 10/07/18 Range/Units 06:25 PT 13.2 (12.2-14.9) Sec. INR 0.95 (0.87-1.13) CBC 10/07/18 Range/Units 06:25 WBC 8.2 (4.5-11.0) K/mm3 RBC 4.24 (3.65-5.03) M/mm3 Hgb 13.1 (11.8-15.2) gm/dl Hct 38.7 (35.5-45.6) % Plt Count 265 (140-440) K/mm3 Lymph # 0.5 L (1.2-5.4) K/mm3 [place] # 0.8 (0.0-0.8) K/mm3 Eos # 0.2 (0.0-0.4) K/mm3 Baso # 0.1 (0.0-0.1) K/mm3 Comprehensive Metabolic Panel 10/07/18 Range/Units 06:25 Sodium 135 L (137-145) mmol/L Potassium 4.5 (3.6-5.0) mmol/L Chloride 103.2 (98-107) mmol/L Carbon Dioxide 26 (22-30) mmol/L BUN 12 (9-20) mg/dL Creatinine 0.9 (0.8-1.5) mg/dL Glucose 99 (75-100) mg/dL Calcium 8.6 (8.4-10.2) mg/dL - Imaging and Cardiology EKG: image reviewed Echo: report reviewed Cardiac cath: report reviewed - Telemetry EKG Rhythm: Sinus Rhythm - EKG Sinus rhythms and dysrhythmias: sinus rhythm
[2018-10-07] MEDS: PLAVIX PO SCH (12:14)
[2018-10-07] MEDS: LOPRESSOR PO SCH ×2 (12:14→22:51)
[2018-10-07] MEDS: BABY ASPIRIN PO SCH (12:15)
[2018-10-07] MEDS: SODIUM CHLORIDE FLUSH SYRINGE 10 ML IV SCH ×2 (12:17→22:51)
[2018-10-07] MEDS: COUMADIN PO SCH (17:27)
--- NOTE | 2018-10-07 17:59 | Progress Note ---
Assessment and Plan Assessment and plan: Acute NSTEMI s/p [facility] with PCI to RCA X 2 Discussed with cardiology Was stable cardiac rouse but not discharged because on 1013 hold due to psychosis and had fever today. CAD s/p PCI Mechanical aortic valve On Coumadin COPD stable Fever. etiology unclear Obtain Blood cultures X 2 stat Full code History Interval history: Patient with NSTEMI Had cardiac cath yesterday 10/06 s/p PCI Fever of 100.6 Hospitalist Physical - Physical exam Narrative exam: GEN: Not in acute distress, lying in bed HEENT: Normocephalic, atraumatic, Neck: supple, No JVD Lungs: Clear to auscultation bilat, no crackles, no wheeze Abd:soft, non tender, non distended, normal bowel sounds Ext: No edema, no clubbing, no cyanosis Neuro:Awake,alert, no focal signs, moves all ext Skin:No rash Psych:psychosis - Constitutional Vitals: Temp Pulse Resp BP Pulse Ox 98.9 F 81 18 127/70 98 10/07/18 17:23 10/07/18 16:19 10/07/18 16:19 10/07/18 16:19 10/07/18 16:19 General appearance: Present: no acute distress Results - Labs CBC & Chem 7: 10/08/18 04:38 10/08/18 04:38 Labs: Laboratory Last Values WBC 8.2 K/mm3 (4.5-11.0) 10/07/18 06:25 RBC 4.24 M/mm3 (3.65-5.03) 10/07/18 06:25 Hgb 13.1 gm/dl (11.8-15.2) 10/07/18 06:25 Hct 38.7 % (35.5-45.6) 10/07/18 06:25 MCV 91 fl (84-94) 10/07/18 06:25 MCH 31 pg (28-32) 10/07/18 06:25 MCHC 34 % (32-34) 10/07/18 06:25 RDW 14.5 % (13.2-15.2) 10/07/18 06:25 Plt Count 265 K/mm3 (140-440) 10/07/18 06:25 Lymph % (Auto) 6.6 % (13.4-35.0) L 10/07/18 06:25 [place] % (Auto) 10.3 % (0.0-7.3) H 10/07/18 06:25 Eos % (Auto) 2.0 % (0.0-4.3) 10/07/18 06:25 Baso % (Auto) 1.3 % (0.0-1.8) 10/07/18 06:25 Lymph # 0.5 K/mm3 (1.2-5.4) L 10/07/18 06:25 [place] # 0.8 K/mm3 (0.0-0.8) 10/07/18 06:25 Eos # 0.2 K/mm3 (0.0-0.4) 10/07/18 06:25 Baso # 0.1 K/mm3 (0.0-0.1) 10/07/18 06:25 Seg Neutrophils % 79.8 % (40.0-70.0) H 10/07/18 06:25 Seg Neutrophils # 6.5 K/mm3 (1.8-7.7) 10/07/18 06:25 PT 13.2 Sec. (12.2-14.9) 10/07/18 06:25 INR 0.95 (0.87-1.13) 10/07/18 06:25 APTT 34.8 Sec. (24.2-36.6) 10/06/18 00:09 Heparin Anti-Xa Level 0.35 U.I./ml (0.3-0.7) 10/06/18 08:01 Sodium 135 mmol/L (137-145) L 10/07/18 06:25 Potassium 4.5 mmol/L (3.6-5.0) 10/07/18 06:25 Chloride 103.2 mmol/L (98-107) 10/07/18 06:25 Carbon Dioxide 26 mmol/L (22-30) 10/07/18 06:25 Anion Gap 10 mmol/L 10/07/18 06:25 BUN 12 mg/dL (9-20) 10/07/18 06:25 Creatinine 0.9 mg/dL (0.8-1.5) 10/07/18 06:25 Estimated GFR > 60 ml/min 10/07/18 06:25 BUN/Creatinine Ratio 13 % 10/07/18 06:25 Glucose 99 mg/dL (75-100) 10/07/18 06:25 Calcium 8.6 mg/dL (8.4-10.2) 10/07/18 06:25 Total Creatine Kinase 44 units/L (55-170) L 10/07/18 06:25 CK-MB (CK-2) 1.2 ng/mL (0.0-4.0) 10/07/18 06:25 CK-MB (CK-2) Rel Index 2.7 (0-4) 10/07/18 06:25 Troponin T 0.402 ng/mL (0.00-0.029) H* D 10/07/18 06:25 Triglycerides 57 mg/dL (2-149) 10/06/18 00:09 Cholesterol 156 mg/dL (50-199) 10/06/18 00:09 LDL Cholesterol Direct 106 mg/dL (50-130) 10/06/18 00:09 HDL Cholesterol 46 mg/dL (40-59) 10/06/18 00:09 Cholesterol/HDL Ratio 3.39 % 10/06/18 00:09 Nutrition/Malnutrition Assess - Dietary Evaluation Nutrition/Malnutrition Findings: Nutrition Notes Start: 10/07/18 15:02 Freq: Status: Active Protocol: Document 10/07/18 15:02 (Rec: 10/07/18 15:03 [id number]) Nutrition Notes Need for Assessment generated from: Education Initial or Follow up Brief Note Subjective/Other Information Screened for Coumadin/Vit K diet education. Pt already familiar with diet. Nutrition Intervention Revisit per MD consult or patient Sign Off request:
[2018-10-08 05:04] LABS: Hematocrit 41.3 % (35.5-45.6); Mean Corpuscular HGB Conc 34 % (32-34); Mean Corpuscular Volume 90 fl (84-94); Platelet Count 262 K/mm3 (140-440); Red Blood Count 4.57 M/mm3 (3.65-5.03); Red Cell Distribution Width 14.7 % (13.2-15.2)
[2018-10-08 05:10] LABS: INR 1.01 (0.87-1.13)
[2018-10-08 05:28] LABS: BUN/Creatinine Ratio 13; Blood Urea Nitrogen 12 mg/dL (9-20); Calcium 8.6 mg/dL (8.4-10.2); Hemolysis Index 9
[2018-10-08] MEDS: LOPRESSOR PO SCH ×2 (11:27→21:28)
[2018-10-08] MEDS: PLAVIX PO SCH (11:28)
[2018-10-08] MEDS: LOVENOX SUB-Q SCH ×2 (11:28→21:28)
[2018-10-08] MEDS: SODIUM CHLORIDE FLUSH SYRINGE 10 ML IV SCH ×2 (11:29→21:29)
[2018-10-08] MEDS: BABY ASPIRIN PO SCH (11:30)
--- NOTE | 2018-10-08 14:22 | XRay Report ---
AP CHEST: HISTORY: Cough, fever The lungs are hyperinflated but clear. No pleural fluid or pneumothorax. Heart and mediastinal structures are unremarkable. Previous CABG changes are noted. IMPRESSION: Emphysematous changes. No acute process.
--- NOTE | 2018-10-08 14:26 | Consultation ---
History of Present Illness - Reason for Consult Consult date: 10/08/18 Reason for consult: Mental health Evaluation Requesting physician: ANA MARÍA IZAGUIRRE - Chief Complaint Chief complaint: "I don"t know how I ended up here" - History of Present Psychiatric Illness 68-year-old male with a past medical history of cardiac valve replacement and COPD presents from [facility] with complaints of chest pain. Today the patient is calm and cooperative during the assessment. He stated that he was having chest pain while inpatient at [place] and was brought to the ER. He stated that he have no idea how he ended up at [facility] when asked. He denies a psy hx when asked. He denies that he take any medication for a mental health dx. He stated that I the provider can contact his family to gather collateral information. He was able to ID the past/present [place] President and hos . He was able to recall 2/3 numbers within 5 mins. He denies SI/HI's and AVH's. He denies erratic sleep and a poor appetite. He denies recreational drug use and alcohol consumption (etoh). Per the record, no behavioral disturbances overnight. Medications and Allergies Allergies Allergy/AdvReac Type Severity Reaction Status Date / Time levofloxacin [From Levaquin] Allergy Unknown Verified 10/05/18 23:42 Penicillins Allergy Unknown Verified 10/05/18 23:42 Home Medications Medication Instructions Recorded Confirmed Last Taken Type ALBUTEROL Inhaler(NF) [VENTOLIN 2 puff INHALATION Q6HR PRN 10/06/18 10/06/18 Un known History Inhaler(NF)] Acetaminophen 2 tab PO Q4HR PRN 10/06/18 10/06/18 Unknown History DUONEB *Not for PRN Use* 1 vial INHALATION Q8HR PRN 10/06/18 10/06/18 Unknown History Haloperidol [Haldol] 5 mg PO Q4HR PRN 10/06/18 10/06/18 Unknown History Magnesium Hydroxide [Milk of 30 ml PO Q2HR PRN 10/06/18 10/06/18 Unknown History Magnesia] diphenhydrAMINE [Benadryl CAP] 50 mg PO Q4HR PRN 10/06/18 10/06/18 Unknown History risperiDONE [Risperdal] 0.5 mg PO DAILY 10/06/18 10/06/18 Unknown History risperiDONE [Risperdal] 1 mg PO HS 10/06/18 10/06/18 Unknown History Active Meds: Active Medications Acetaminophen (Tylenol) 650 mg PO Q4H PRN PRN Reason: Pain MILD(1-3)/Fever >100.5/ALFONSO Aspirin (Baby Aspirin) 81 mg PO QDAY [facility] Last Admin: 10/08/18 11:30 Dose: 81 mg Documented by: Atorvastatin Calcium (Lipitor) 40 mg PO QHS [facility] Last Admin: 10/07/18 22:50 Dose: Not Given Documented by: Clopidogrel Bisulfate (Plavix) 75 mg PO QDAY [facility] Last Admin: 10/08/18 11:28 Dose: 75 mg Documented by: Enoxaparin Sodium (Lovenox) 80 mg SUB-Q BID [facility] Last Admin: 10/08/18 11:28 Dose: 80 mg Documented by: Metoprolol Tartrate (Lopressor) 12.5 mg PO BID [facility] Last Admin: 10/08/18 11:27 Dose: Not Given Documented by: Ondansetron HCl (Zofran) 4 mg IV Q4H PRN PRN Reason: Nausea And Vomiting Oxycodone/Acetaminophen (Percocet 5/325) 1 tab PO Q6H PRN PRN Reason: Pain, Moderate (4-6) Last Admin: 10/07/18 17:27 Dose: 1 tab Documented by: Sodium Chloride (Sodium Chloride Flush Syringe 10 Ml) 10 ml IV BID [facility] Last Admin: 10/08/18 11:29 Dose: 10 ml Documented by: Sodium Chloride (Sodium Chloride Flush Syringe 10 Ml) 10 ml IV PRN PRN PRN Reason: LINE FLUSH Warfarin Sodium (Coumadin) 7.5 mg PO DAILY@1700 [facility] Last Admin: 10/07/18 17:27 Dose: 7.5 mg Documented by: Past psychiatric history - Past Medical History Past Medical History: COPD, other (Cadiac Disease) Past Surgical History: Other (Cardiac Valve Replacement) - Social History Social history: Lives alone Mental Status Exam - Vital signs Last Vital Signs Temp 99.7 F H 10/08/18 04:09 Pulse 69 10/08/18 11:27 Resp 14 10/08/18 04:09 BP 91/53 10/08/18 11:27 Pulse Ox 96 10/08/18 07:33 - Exam Narrative exam: MSE: Appearance: calm, cooperative Behavior: regular eye contact Speech: regular rate and loud tone Mood: "okay" Affect: congruent to mood Thought Process: circumstantial Thought Content: denies SI/HI's and AVH's Motor Activity: sitting up in the bed Cognition: A/O x3 Insight: variable to fair Judgment: fair Results Result Diagrams: 10/08/18 04:38 10/08/18 04:38 Abnormal lab results 10/06/18 10/08/18 Range/Units 13:00 04:38 Activated Clotting Time 202 H (74-137) Sodium 134 L (137-145) mmol/L All other labs normal. Assessment and Plan Assessment and plan: Impression: Today the patient is calm and cooperative during the assessment. Recommendation/Plan: Reevaluate 1013 and gather collateral information. Dispo: Once collateral information is gathered, proper dispo will be determined. Will staff with Dr Kaur.
[2018-10-08] MEDS: COUMADIN PO SCH (17:19)
[2018-10-08 20:36] LABS: Bilirubin,Urine NEG (Negative); Blood,Urine SM (Negative); Color,Urine Yellow (Yellow); Protein,Urine <15 mg/dL mg/dL (Negative); Urobilinogen,Urine < 2.0 mg/dL (<2.0)
[2018-10-09 05:36] LABS: INR 1.12 (0.87-1.13)
[2018-10-09] MEDS: LOVENOX SUB-Q SCH ×2 (11:14→22:41)
[2018-10-09] MEDS: LOPRESSOR PO SCH ×2 (11:15→21:22)
[2018-10-09] MEDS: PLAVIX PO SCH (11:15)
[2018-10-09] MEDS: BABY ASPIRIN PO SCH (11:15)
[2018-10-09] MEDS: SODIUM CHLORIDE FLUSH SYRINGE 10 ML IV SCH ×2 (11:17→21:23)
--- NOTE | 2018-10-09 14:37 | Event Note ---
Date: 10/09/18 Patient medically stable for discharge.
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
[2018-10-09] MEDS ORDERED: COUMADIN PO SCH (17:00)
[2018-10-09] MEDS: COUMADIN PO SCH (17:18)
--- NOTE | 2018-10-09 18:15 | Progress Note ---
Assessment and Plan Assessment and plan: Acute NSTEMI s/p [facility] with PCI to RCA X 2 Discussed with cardiology Was stable cardiac rouse but not discharged because on 1013 hold due to psychosis and had fever yesterday CAD s/p PCI Mechanical aortic valve On Coumadin COPD stable Fever. etiology unclear Blood cultures no growth Full code History Interval history: Patient with NSTEMI Had cardiac cath yesterday 10/06 s/p PCI No more fever Hospitalist Physical - Physical exam Narrative exam: GEN: Not in acute distress, lying in bed HEENT: Normocephalic, atraumatic, Neck: supple, No JVD Lungs: Clear to auscultation bilat, no crackles, no wheeze Abd:soft, non tender, non distended, normal bowel sounds Ext: No edema, no clubbing, no cyanosis Neuro:Awake,alert, no focal signs, moves all ext Skin:No rash Psych:psychosis - Constitutional Vitals: Temp Pulse Resp BP Pulse Ox 97.6 F 68 18 120/73 96 10/09/18 14:47 10/09/18 15:58 10/09/18 15:58 10/09/18 14:47 10/09/18 15:58 General appearance: Present: no acute distress Results - Labs CBC & Chem 7: 10/08/18 04:38 10/08/18 04:38 Labs: Laboratory Last Values WBC 10.0 K/mm3 (4.5-11.0) 10/08/18 04:38 RBC 4.57 M/mm3 (3.65-5.03) 10/08/18 04:38 Hgb 14.0 gm/dl (11.8-15.2) 10/08/18 04:38 Hct 41.3 % (35.5-45.6) 10/08/18 04:38 MCV 90 fl (84-94) 10/08/18 04:38 MCH 31 pg (28-32) 10/08/18 04:38 MCHC 34 % (32-34) 10/08/18 04:38 RDW 14.7 % (13.2-15.2) 10/08/18 04:38 Plt Count 262 K/mm3 (140-440) 10/08/18 04:38 Lymph % (Auto) 6.6 % (13.4-35.0) L 10/07/18 06:25 [place] % (Auto) 10.3 % (0.0-7.3) H 10/07/18 06:25 Eos % (Auto) 2.0 % (0.0-4.3) 10/07/18 06:25 Baso % (Auto) 1.3 % (0.0-1.8) 10/07/18 06:25 Lymph # 0.5 K/mm3 (1.2-5.4) L 10/07/18 06:25 [place] # 0.8 K/mm3 (0.0-0.8) 10/07/18 06:25 Eos # 0.2 K/mm3 (0.0-0.4) 10/07/18 06:25 Baso # 0.1 K/mm3 (0.0-0.1) 10/07/18 06:25 Seg Neutrophils % 79.8 % (40.0-70.0) H 10/07/18 06:25 Seg Neutrophils # 6.5 K/mm3 (1.8-7.7) 10/07/18 06:25 PT 15.1 Sec. (12.2-14.9) H 10/09/18 04:55 INR 1.12 (0.87-1.13) 10/09/18 04:55 APTT 34.8 Sec. (24.2-36.6) 10/06/18 00:09 Activated Clotting Time 136 (74-137) 10/06/18 15:09 Heparin Anti-Xa Level 0.35 U.I./ml (0.3-0.7) 10/06/18 08:01 Sodium 134 mmol/L (137-145) L 10/08/18 04:38 Potassium 4.3 mmol/L (3.6-5.0) 10/08/18 04:38 Chloride 100.4 mmol/L (98-107) 10/08/18 04:38 Carbon Dioxide 23 mmol/L (22-30) 10/08/18 04:38 Anion Gap 15 mmol/L 10/08/18 04:38 BUN 12 mg/dL (9-20) 10/08/18 04:38 Creatinine 0.9 mg/dL (0.8-1.5) 10/08/18 04:38 Estimated GFR > 60 ml/min 10/08/18 04:38 BUN/Creatinine Ratio 13 % 10/08/18 04:38 Glucose 95 mg/dL (75-100) 10/08/18 04:38 Calcium 8.6 mg/dL (8.4-10.2) 10/08/18 04:38 Total Creatine Kinase 44 units/L (55-170) L 10/07/18 06:25 CK-MB (CK-2) 1.2 ng/mL (0.0-4.0) 10/07/18 06:25 CK-MB (CK-2) Rel Index 2.7 (0-4) 10/07/18 06:25 Troponin T 0.402 ng/mL (0.00-0.029) H* D 10/07/18 06:25 Triglycerides 57 mg/dL (2-149) 10/06/18 00:09 Cholesterol 156 mg/dL (50-199) 10/06/18 00:09 LDL Cholesterol Direct 106 mg/dL (50-130) 10/06/18 00:09 HDL Cholesterol 46 mg/dL (40-59) 10/06/18 00:09 Cholesterol/HDL Ratio 3.39 % 10/06/18 00:09 Urine Color Yellow (Yellow) 10/08/18 Unknown Urine Turbidity Clear (Clear) 10/08/18 Unknown Urine pH 5.0 (5.0-7.0) 10/08/18 Unknown Ur Specific [place] 1.012 (1.003-1.030) 10/08/18 Unknown Urine Protein <15 mg/dl mg/dL (Negative) 10/08/18 Unknown Urine Glucose (UA) Neg mg/dL (Negative) 10/08/18 Unknown Urine Ketones Neg mg/dL (Negative) 10/08/18 Unknown Urine Blood Sm (Negative) 10/08/18 Unknown Urine Nitrite Neg (Negative) 10/08/18 Unknown Urine Bilirubin Neg (Negative) 10/08/18 Unknown Urine Urobilinogen < 2.0 mg/dL (<2.0) 10/08/18 Unknown Ur Leukocyte Esterase Neg (Negative) 10/08/18 Unknown Urine WBC (Auto) 1.0 /HPF (0.0-6.0) 10/08/18 Unknown Urine RBC (Auto) 2.0 /HPF (0.0-6.0) 10/08/18 Unknown Nutrition/Malnutrition Assess - Dietary Evaluation Nutrition/Malnutrition Findings: Nutrition Notes Start: 10/07/18 15:02 Freq: Status: Active Protocol: Document 10/07/18 15:02 RM (Rec: 10/07/18 15:03 RM [id number]) Nutrition Notes Need for Assessment generated from: Education Initial or Follow up Brief Note Subjective/Other Information Screened for Coumadin/Vit K diet education. Pt already familiar with diet. Nutrition Intervention Revisit per MD consult or patient Sign Off request:
--- NOTE | 2018-10-09 18:23 | Progress Note ---
Assessment and Plan Assessment and plan: Acute NSTEMI s/p [facility] with PCI to RCA X 2 Discussed with cardiology Was stable cardiac rouse but not discharged because on 1013 hold due to psychosis. Now srtable to dc CAD s/p PCI Mechanical aortic valve On Coumadin and Lovenocx bridge COPD stable Fever. Resolved Blood cultures no growth Full code status. Medically stable for discharge. History Interval history: Patient with NSTEMI Had cardiac cath 10/06 s/p PCI No more fever Hospitalist Physical - Physical exam Narrative exam: GEN: Not in acute distress, lying in bed HEENT: Normocephalic, atraumatic, Neck: supple, No JVD Heart:S1 and s2 reg, click from mecanical valve Lungs: Clear to auscultation bilat, no crackles, no wheeze Abd:soft, non tender, non distended, normal bowel sounds Ext: No edema, no clubbing, no cyanosis Neuro:Awake,alert, no focal signs, moves all ext Skin:No rash Psych:psychosis - Constitutional Vitals: Temp Pulse Resp BP Pulse Ox 97.6 F 68 18 120/73 96 10/09/18 14:47 10/09/18 15:58 10/09/18 15:58 10/09/18 14:47 10/09/18 15:58 General appearance: Present: no acute distress Results - Labs CBC & Chem 7: 10/08/18 04:38 10/08/18 04:38 Labs: Laboratory Last Values WBC 10.0 K/mm3 (4.5-11.0) 10/08/18 04:38 RBC 4.57 M/mm3 (3.65-5.03) 10/08/18 04:38 Hgb 14.0 gm/dl (11.8-15.2) 10/08/18 04:38 Hct 41.3 % (35.5-45.6) 10/08/18 04:38 MCV 90 fl (84-94) 10/08/18 04:38 MCH 31 pg (28-32) 10/08/18 04:38 MCHC 34 % (32-34) 10/08/18 04:38 RDW 14.7 % (13.2-15.2) 10/08/18 04:38 Plt Count 262 K/mm3 (140-440) 10/08/18 04:38 Lymph % (Auto) 6.6 % (13.4-35.0) L 10/07/18 06:25 [place] % (Auto) 10.3 % (0.0-7.3) H 10/07/18 06:25 Eos % (Auto) 2.0 % (0.0-4.3) 10/07/18 06:25 Baso % (Auto) 1.3 % (0.0-1.8) 10/07/18 06:25 Lymph # 0.5 K/mm3 (1.2-5.4) L 10/07/18 06:25 [place] # 0.8 K/mm3 (0.0-0.8) 10/07/18 06:25 Eos # 0.2 K/mm3 (0.0-0.4) 10/07/18 06:25 Baso # 0.1 K/mm3 (0.0-0.1) 10/07/18 06:25 Seg Neutrophils % 79.8 % (40.0-70.0) H 10/07/18 06:25 Seg Neutrophils # 6.5 K/mm3 (1.8-7.7) 10/07/18 06:25 PT 15.1 Sec. (12.2-14.9) H 10/09/18 04:55 INR 1.12 (0.87-1.13) 10/09/18 04:55 APTT 34.8 Sec. (24.2-36.6) 10/06/18 00:09 Activated Clotting Time 136 (74-137) 10/06/18 15:09 Heparin Anti-Xa Level 0.35 U.I./ml (0.3-0.7) 10/06/18 08:01 Sodium 134 mmol/L (137-145) L 10/08/18 04:38 Potassium 4.3 mmol/L (3.6-5.0) 10/08/18 04:38 Chloride 100.4 mmol/L (98-107) 10/08/18 04:38 Carbon Dioxide 23 mmol/L (22-30) 10/08/18 04:38 Anion Gap 15 mmol/L 10/08/18 04:38 BUN 12 mg/dL (9-20) 10/08/18 04:38 Creatinine 0.9 mg/dL (0.8-1.5) 10/08/18 04:38 Estimated GFR > 60 ml/min 10/08/18 04:38 BUN/Creatinine Ratio 13 % 10/08/18 04:38 Glucose 95 mg/dL (75-100) 10/08/18 04:38 Calcium 8.6 mg/dL (8.4-10.2) 10/08/18 04:38 Total Creatine Kinase 44 units/L (55-170) L 10/07/18 06:25 CK-MB (CK-2) 1.2 ng/mL (0.0-4.0) 10/07/18 06:25 CK-MB (CK-2) Rel Index 2.7 (0-4) 10/07/18 06:25 Troponin T 0.402 ng/mL (0.00-0.029) H* D 10/07/18 06:25 Triglycerides 57 mg/dL (2-149) 10/06/18 00:09 Cholesterol 156 mg/dL (50-199) 10/06/18 00:09 LDL Cholesterol Direct 106 mg/dL (50-130) 10/06/18 00:09 HDL Cholesterol 46 mg/dL (40-59) 10/06/18 00:09 Cholesterol/HDL Ratio 3.39 % 10/06/18 00:09 Urine Color Yellow (Yellow) 10/08/18 Unknown Urine Turbidity Clear (Clear) 10/08/18 Unknown Urine pH 5.0 (5.0-7.0) 10/08/18 Unknown Ur Specific [place] 1.012 (1.003-1.030) 10/08/18 Unknown Urine Protein <15 mg/dl mg/dL (Negative) 10/08/18 Unknown Urine Glucose (UA) Neg mg/dL (Negative) 10/08/18 Unknown Urine Ketones Neg mg/dL (Negative) 10/08/18 Unknown Urine Blood Sm (Negative) 10/08/18 Unknown Urine Nitrite Neg (Negative) 10/08/18 Unknown Urine Bilirubin Neg (Negative) 10/08/18 Unknown Urine Urobilinogen < 2.0 mg/dL (<2.0) 10/08/18 Unknown Ur Leukocyte Esterase Neg (Negative) 10/08/18 Unknown Urine WBC (Auto) 1.0 /HPF (0.0-6.0) 10/08/18 Unknown Urine RBC (Auto) 2.0 /HPF (0.0-6.0) 10/08/18 Unknown Nutrition/Malnutrition Assess - Dietary Evaluation Nutrition/Malnutrition Findings: Nutrition Notes Start: 10/07/18 15:02 Freq: Status: Active Protocol: Document 10/07/18 15:02 RM (Rec: 10/07/18 15:03 [id number]) Nutrition Notes Need for Assessment generated from: Education Initial or Follow up Brief Note Subjective/Other Information Screened for Coumadin/Vit K diet education. Pt already familiar with diet. Nutrition Intervention Revisit per MD consult or patient Sign Off request:
--- NOTE | 2018-10-09 19:05 | Discharge Summary ---
Providers - Providers Date of Admission: 10/06/18 02:17 Date of discharge: 10/09/18 Attending physician: WAI NGUYEN 10/06/18 Consult to Cardiac Rehabilitation [CONS] Routine Reason For Exam: post pci 10/06/18 01:39 Consult to Physician [CONS] Urgent Comment: Dr. Pate spoke with Dr. Kowalski @ [phone] Consulting Provider: OLGA KOWALSKI Physician Instructions: Reason For Exam: elevated trop, cp 10/07/18 09:41 Consult to Case Management [CONS] Routine Services Needed at Discharge: Other Notified:: case management Comment:: dc back to [place] 10/07/18 10:48 Consult to Mental Health [CONS] Routine Reason For Exam: Psychosis on 1013 Place consult to:: Psych Notified:: Jerilyn TERRELL Phone number called:: Ext. [phone] Was contact made?: Yes If yes, spoke with:: [facility] Time called:: 11:10 Hospitalization Condition: Fair Disposition: DC/[place]-65 PSY HOSP/PSY UNIT Exam - Constitutional Vitals: Temp Pulse Resp BP Pulse Ox 97.6 F 68 18 120/73 96 10/09/18 14:47 10/09/18 15:58 10/09/18 15:58 10/09/18 14:47 10/09/18 15:58 Plan Activity: no restrictions Diet: low fat, low cholesterol, low salt Additional Instructions: 1.Follow up with Dr. Mcnamara on 10/23/18. 2.Check INR on Friday10/12/18. 3.Discontinue Lovenox when INR therapeutic. 3.Adjust Coumadin to therapeutic INR of 2-3 Follow up with: TARIQ GILMORE [Other] - 7 Days VERA MCNAMARA MD [Staff Physician] - 7 Days (Follow up in our [place] office with Dr. Mcnamara on 10/23/2018 @ 1:30PM. ) Forms: Warfarin Discharge Instruction Prescriptions: Aspirin [Aspirin BABY CHEW TAB] 81 mg PO QDAY #30 tab.chew Warfarin [Coumadin] 7.5 mg PO DAILY@1700 #30 tablet AtorvaSTATin [Lipitor] 40 mg PO QHS #30 tablet Metoprolol [Lopressor TAB] 12.5 mg PO BID #60 tablet Enoxaparin [Lovenox] 80 mg SUB-Q BID #10 syringe Clopidogrel [Plavix] 75 mg PO QDAY #30 tablet
[2018-10-09] MEDS: RisperDAL PO SCH (21:22)
[2018-10-10 05:30] LABS: INR 1.21 (0.87-1.13)
[2018-10-10] MEDS: PLAVIX PO SCH (10:17)
[2018-10-10] MEDS: SODIUM CHLORIDE FLUSH SYRINGE 10 ML IV SCH ×2 (10:17→21:15)
[2018-10-10] MEDS: LOPRESSOR PO SCH ×2 (10:17→21:19)
[2018-10-10] MEDS: BABY ASPIRIN PO SCH (10:18)
[2018-10-10] MEDS: LOVENOX SUB-Q SCH ×2 (11:12→21:15)
[2018-10-10] MEDS ORDERED: COUMADIN PO SCH (17:00)
[2018-10-10] MEDS: COUMADIN PO SCH (17:27)
--- NOTE | 2018-10-10 18:03 | Progress Note ---
Assessment and Plan Assessment and plan: Acute NSTEMI s/p [facility] with PCI to RCA X 2 Discussed with cardiology Was stable cardiac rouse but not discharged because on 1013 hold due to psychosis. Now stable to dc CAD s/p PCI Mechanical aortic valve On Coumadin and Lovenox bridge COPD stable Fever. Resolved Blood cultures no growth Full code status. Medically stable for discharge. History Interval history: Patient with NSTEMI Had cardiac cath 10/06 s/p PCI No more fever Hospitalist Physical - Physical exam Narrative exam: GEN: Not in acute distress, lying in bed HEENT: Normocephalic, atraumatic, Neck: supple, No JVD Heart:S1 and s2 reg, click from mecanical valve Lungs: Clear to auscultation bilat, no crackles, no wheeze Abd:soft, non tender, non distended, normal bowel sounds Ext: No edema, no clubbing, no cyanosis Neuro:Awake,alert, no focal signs, moves all ext Skin:No rash Psych:psychosis - Constitutional Vitals: Temp Pulse Resp BP Pulse Ox 97.6 F 71 20 118/64 97 10/10/18 14:19 10/10/18 14:19 10/10/18 14:19 10/10/18 14:19 10/10/18 14:19 General appearance: Present: no acute distress Results - Labs CBC & Chem 7: 10/11/18 04:41 10/11/18 04:41 Labs: Laboratory Last Values WBC 10.0 K/mm3 (4.5-11.0) 10/08/18 04:38 RBC 4.57 M/mm3 (3.65-5.03) 10/08/18 04:38 Hgb 14.0 gm/dl (11.8-15.2) 10/08/18 04:38 Hct 41.3 % (35.5-45.6) 10/08/18 04:38 MCV 90 fl (84-94) 10/08/18 04:38 MCH 31 pg (28-32) 10/08/18 04:38 MCHC 34 % (32-34) 10/08/18 04:38 RDW 14.7 % (13.2-15.2) 10/08/18 04:38 Plt Count 262 K/mm3 (140-440) 10/08/18 04:38 Lymph % (Auto) 6.6 % (13.4-35.0) L 10/07/18 06:25 [place] % (Auto) 10.3 % (0.0-7.3) H 10/07/18 06:25 Eos % (Auto) 2.0 % (0.0-4.3) 10/07/18 06:25 Baso % (Auto) 1.3 % (0.0-1.8) 10/07/18 06:25 Lymph # 0.5 K/mm3 (1.2-5.4) L 10/07/18 06:25 [place] # 0.8 K/mm3 (0.0-0.8) 10/07/18 06:25 Eos # 0.2 K/mm3 (0.0-0.4) 10/07/18 06:25 Baso # 0.1 K/mm3 (0.0-0.1) 10/07/18 06:25 Seg Neutrophils % 79.8 % (40.0-70.0) H 10/07/18 06:25 Seg Neutrophils # 6.5 K/mm3 (1.8-7.7) 10/07/18 06:25 PT 16.1 Sec. (12.2-14.9) H 10/10/18 04:21 INR 1.21 (0.87-1.13) H 10/10/18 04:21 APTT 34.8 Sec. (24.2-36.6) 10/06/18 00:09 Activated Clotting Time 136 (74-137) 10/06/18 15:09 Heparin Anti-Xa Level 0.35 U.I./ml (0.3-0.7) 10/06/18 08:01 Sodium 134 mmol/L (137-145) L 10/08/18 04:38 Potassium 4.3 mmol/L (3.6-5.0) 10/08/18 04:38 Chloride 100.4 mmol/L (98-107) 10/08/18 04:38 Carbon Dioxide 23 mmol/L (22-30) 10/08/18 04:38 Anion Gap 15 mmol/L 10/08/18 04:38 BUN 12 mg/dL (9-20) 10/08/18 04:38 Creatinine 0.9 mg/dL (0.8-1.5) 10/08/18 04:38 Estimated GFR > 60 ml/min 10/08/18 04:38 BUN/Creatinine Ratio 13 % 10/08/18 04:38 Glucose 95 mg/dL (75-100) 10/08/18 04:38 Calcium 8.6 mg/dL (8.4-10.2) 10/08/18 04:38 Total Creatine Kinase 44 units/L (55-170) L 10/07/18 06:25 CK-MB (CK-2) 1.2 ng/mL (0.0-4.0) 10/07/18 06:25 CK-MB (CK-2) Rel Index 2.7 (0-4) 10/07/18 06:25 Troponin T 0.402 ng/mL (0.00-0.029) H* D 10/07/18 06:25 Triglycerides 57 mg/dL (2-149) 10/06/18 00:09 Cholesterol 156 mg/dL (50-199) 10/06/18 00:09 LDL Cholesterol Direct 106 mg/dL (50-130) 10/06/18 00:09 HDL Cholesterol 46 mg/dL (40-59) 10/06/18 00:09 Cholesterol/HDL Ratio 3.39 % 10/06/18 00:09 Urine Color Yellow (Yellow) 10/08/18 Unknown Urine Turbidity Clear (Clear) 10/08/18 Unknown Urine pH 5.0 (5.0-7.0) 10/08/18 Unknown Ur Specific [place] 1.012 (1.003-1.030) 10/08/18 Unknown Urine Protein <15 mg/dl mg/dL (Negative) 10/08/18 Unknown Urine Glucose (UA) Neg mg/dL (Negative) 10/08/18 Unknown Urine Ketones Neg mg/dL (Negative) 10/08/18 Unknown Urine Blood Sm (Negative) 10/08/18 Unknown Urine Nitrite Neg (Negative) 10/08/18 Unknown Urine Bilirubin Neg (Negative) 10/08/18 Unknown Urine Urobilinogen < 2.0 mg/dL (<2.0) 10/08/18 Unknown Ur Leukocyte Esterase Neg (Negative) 10/08/18 Unknown Urine WBC (Auto) 1.0 /HPF (0.0-6.0) 10/08/18 Unknown Urine RBC (Auto) 2.0 /HPF (0.0-6.0) 10/08/18 Unknown Nutrition/Malnutrition Assess - Dietary Evaluation Nutrition/Malnutrition Findings: Nutrition Notes Start: 10/07/18 15:02 Freq: Status: Active Protocol: Document 10/07/18 15:02 RM (Rec: 10/07/18 15:03 RM [id number]) Nutrition Notes Need for Assessment generated from: Education Initial or Follow up Brief Note Subjective/Other Information Screened for Coumadin/Vit K diet education. Pt already familiar with diet. Nutrition Intervention Revisit per MD consult or patient Sign Off request:
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
--- NOTE | 2018-10-10 20:57 | Progress Note ---
Subjective - Reason for Consult Consult date: 10/10/18 Reason for consult: Psychiatric Follow-up Evaluation - Chief Complaint Chief complaint: "'I feel good" Patient is a 68-year-old male with a past medical history of cardiac valve replacement and COPD presents from [facility] with complaints of chest pain. Today the patient is irritable but disorganized during the assessment. Presents with less paranoid delusions. Thought content impoverished. Patient is medication compliant. Denies any side effects of medications. He denies SI/HI's and AVH's. Mental Status Exam - Vital signs Last Vital Signs Temp 97.6 F 10/10/18 14:19 Pulse 71 10/10/18 14:19 Resp 20 10/10/18 14:19 BP 118/64 10/10/18 14:19 Pulse Ox 97 10/10/18 14:19 - Exam Narrative exam: Mental Status Exam Appearance: calm, cooperative Behavior: regular eye contact Speech: regular rate and loud tone Mood: "I'm good"; irritable Affect: incongruent to mood Thought Process: disorganized Thought Content: denies SI/HI's and AVH's; + paranoid delusions Motor Activity: sitting up in the bed Cognition: A/O x3 Insight: variable Judgment: variable to fair Assessment and Plan Impression: Unspecified Psychosis. Today the patient is irritable and disorganized (less) during the assessment. QTc 441. Recommendation/Plan: 1. Continue 1013 . 2. Continue Risperdal 1 mg PO HS for psychosis. Discussed possible metabolic side effects of Risperdal with the patient. Disposition: The patient was referred to inpatient psychiatric services. Will staff with Dr Kaur.
[2018-10-10] MEDS: RisperDAL PO SCH (21:15)
[2018-10-11 05:33] LABS: Hematocrit 40.7 % (35.5-45.6); Hemoglobin 13.7 gm/dl (11.8-15.2); Mean Corpuscular HGB Conc 34 % (32-34); Mean Corpuscular Volume 91 fl (84-94); Platelet Count 355 K/mm3 (140-440); Red Blood Count 4.47 M/mm3 (3.65-5.03); Red Cell Distribution Width 14.6 % (13.2-15.2)
[2018-10-11 05:39] LABS: INR 1.82 (0.87-1.13)
[2018-10-11 05:53] LABS: BUN/Creatinine Ratio 18; Blood Urea Nitrogen 14 mg/dL (9-20); Calcium 8.9 mg/dL (8.4-10.2); Hemolysis Index 43
[2018-10-11] MEDS: PLAVIX PO SCH (10:28)
[2018-10-11] MEDS: LOPRESSOR PO SCH ×2 (10:28→21:53)
[2018-10-11] MEDS: BABY ASPIRIN PO SCH (10:29)
[2018-10-11] MEDS: LOVENOX SUB-Q SCH ×2 (10:29→21:52)
[2018-10-11] MEDS: SODIUM CHLORIDE FLUSH SYRINGE 10 ML IV SCH ×2 (10:30→21:52)
--- NOTE | 2018-10-11 12:04 | Progress Note ---
Subjective - Reason for Consult Consult date: 10/11/18 Reason for consult: Psychiatric Follow-up Evaluation - Chief Complaint Chief complaint: "'Pretty good" Patient is a 68-year-old male with a past medical history of cardiac valve replacement and COPD presents from [facility] with complaints of chest pain. Today the patient is less irritable and disorganized during the assessment. Presents more cooperative and compliant. Thought content impoverished. Patient is medication compliant. Denies any side effects of medications. He denies SI/HI's, AVH's, and delusions. Mental Status Exam - Vital signs Last Vital Signs Temp 98.4 F 10/11/18 07:15 Pulse 73 10/11/18 10:28 Resp 20 10/11/18 07:15 BP 145/65 10/11/18 10:28 Pulse Ox 94 10/11/18 07:30 - Exam Narrative exam: Mental Status Exam Appearance: calm, cooperative Behavior: regular eye contact Speech: regular rate and loud tone Mood: "Pretty good"; less irritable Affect: congruent to mood Thought Process: disorganized-less; more organized Thought Content: denies SI/HI's, A/VH's, and delusions Motor Activity: sitting up in the bed Cognition: A/O x 3 Insight: variable Judgment: variable to fair Assessment and Plan Impression: Unspecified Psychosis. Today the patient is less irritable and disorganized (less) during the assessment. Presents cooperative and compliant. Patient denies SI/HI's, A/VH's, and delusions. Recommendation/Plan: 1. Continue 1013. 2. Continue Risperdal 1 mg PO HS for psychosis. Discussed possible metabolic side effects of Risperdal with the patient. Disposition: The patient was referred to inpatient psychiatric services. Staffed with Dr. Kaur.
[2018-10-11] MEDS: COUMADIN PO SCH (16:36)
[2018-10-11] MEDS: RisperDAL PO SCH (21:52)
[2018-10-12 04:02] LABS: INR 1.95 (0.87-1.13)
[2018-10-12] MEDS: BABY ASPIRIN PO SCH ×2 (08:30→11:52)
[2018-10-12] MEDS: LOVENOX SUB-Q SCH ×3 (08:31→21:58)
[2018-10-12] MEDS: PLAVIX PO SCH ×2 (08:31→12:16)
[2018-10-12] MEDS: SODIUM CHLORIDE FLUSH SYRINGE 10 ML IV SCH ×3 (08:38→21:58)
--- NOTE | 2018-10-12 09:06 | Progress Note ---
Assessment and Plan Assessment and plan: Acute NSTEMI s/p [facility] with PCI to RCA X 2 Discussed with cardiology Was stable cardiac rouse but not discharged because on 1013 hold due to psychosis. Now stable to dc CAD s/p PCI Mechanical aortic valve On Coumadin and Lovenox bridge COPD stable Fever. Resolved Blood cultures no growth Full code status. Medically stable for discharge. History Interval history: Patient with NSTEMI Had cardiac cath 10/06 s/p PCI No more fever No chest pain Hospitalist Physical - Physical exam Narrative exam: GEN: Not in acute distress, lying in bed HEENT: Normocephalic, atraumatic, Neck: supple, No JVD Heart:S1 and s2 reg, click from mecanical valve Lungs: Clear to auscultation bilat, no crackles, no wheeze Abd:soft, non tender, non distended, normal bowel sounds Ext: No edema, no clubbing, no cyanosis Neuro:Awake,alert, no focal signs, moves all ext Skin:No rash Psych:psychosis - Constitutional Vitals: Temp Pulse Resp BP Pulse Ox 97.9 F 64 20 104/69 98 10/12/18 07:27 10/12/18 07:27 10/12/18 07:27 10/12/18 07:27 10/12/18 07:27 General appearance: Present: no acute distress Results - Labs CBC & Chem 7: 10/11/18 04:41 10/11/18 04:41 Labs: Laboratory Last Values WBC 9.1 K/mm3 (4.5-11.0) 10/11/18 04:41 RBC 4.47 M/mm3 (3.65-5.03) 10/11/18 04:41 Hgb 13.7 gm/dl (11.8-15.2) 10/11/18 04:41 Hct 40.7 % (35.5-45.6) 10/11/18 04:41 MCV 91 fl (84-94) 10/11/18 04:41 MCH 31 pg (28-32) 10/11/18 04:41 MCHC 34 % (32-34) 10/11/18 04:41 RDW 14.6 % (13.2-15.2) 10/11/18 04:41 Plt Count 355 K/mm3 (140-440) 10/11/18 04:41 Lymph % (Auto) 6.6 % (13.4-35.0) L 10/07/18 06:25 [place] % (Auto) 10.3 % (0.0-7.3) H 10/07/18 06:25 Eos % (Auto) 2.0 % (0.0-4.3) 10/07/18 06:25 Baso % (Auto) 1.3 % (0.0-1.8) 10/07/18 06:25 Lymph # 0.5 K/mm3 (1.2-5.4) L 10/07/18 06:25 [place] # 0.8 K/mm3 (0.0-0.8) 10/07/18 06:25 Eos # 0.2 K/mm3 (0.0-0.4) 10/07/18 06:25 Baso # 0.1 K/mm3 (0.0-0.1) 10/07/18 06:25 Seg Neutrophils % 79.8 % (40.0-70.0) H 10/07/18 06:25 Seg Neutrophils # 6.5 K/mm3 (1.8-7.7) 10/07/18 06:25 PT 23.5 Sec. (12.2-14.9) H 10/12/18 03:26 INR 1.95 (0.87-1.13) H 10/12/18 03:26 APTT 34.8 Sec. (24.2-36.6) 10/06/18 00:09 Activated Clotting Time 136 (74-137) 10/06/18 15:09 Heparin Anti-Xa Level 0.35 U.I./ml (0.3-0.7) 10/06/18 08:01 Sodium 135 mmol/L (137-145) L 10/11/18 04:41 Potassium 4.6 mmol/L (3.6-5.0) 10/11/18 04:41 Chloride 99.5 mmol/L (98-107) 10/11/18 04:41 Carbon Dioxide 25 mmol/L (22-30) 10/11/18 04:41 Anion Gap 15 mmol/L 10/11/18 04:41 BUN 14 mg/dL (9-20) 10/11/18 04:41 Creatinine 0.8 mg/dL (0.8-1.5) 10/11/18 04:41 Estimated GFR > 60 ml/min 10/11/18 04:41 BUN/Creatinine Ratio 18 % 10/11/18 04:41 Glucose 90 mg/dL (75-100) 10/11/18 04:41 Calcium 8.9 mg/dL (8.4-10.2) 10/11/18 04:41 Total Creatine Kinase 44 units/L (55-170) L 10/07/18 06:25 CK-MB (CK-2) 1.2 ng/mL (0.0-4.0) 10/07/18 06:25 CK-MB (CK-2) Rel Index 2.7 (0-4) 10/07/18 06:25 Troponin T 0.402 ng/mL (0.00-0.029) H* D 10/07/18 06:25 Triglycerides 57 mg/dL (2-149) 10/06/18 00:09 Cholesterol 156 mg/dL (50-199) 10/06/18 00:09 LDL Cholesterol Direct 106 mg/dL (50-130) 10/06/18 00:09 HDL Cholesterol 46 mg/dL (40-59) 10/06/18 00:09 Cholesterol/HDL Ratio 3.39 % 10/06/18 00:09 Urine Color Yellow (Yellow) 10/08/18 Unknown Urine Turbidity Clear (Clear) 10/08/18 Unknown Urine pH 5.0 (5.0-7.0) 10/08/18 Unknown Ur Specific [place] 1.012 (1.003-1.030) 10/08/18 Unknown Urine Protein <15 mg/dl mg/dL (Negative) 10/08/18 Unknown Urine Glucose (UA) Neg mg/dL (Negative) 10/08/18 Unknown Urine Ketones Neg mg/dL (Negative) 10/08/18 Unknown Urine Blood Sm (Negative) 10/08/18 Unknown Urine Nitrite Neg (Negative) 10/08/18 Unknown Urine Bilirubin Neg (Negative) 10/08/18 Unknown Urine Urobilinogen < 2.0 mg/dL (<2.0) 10/08/18 Unknown Ur Leukocyte Esterase Neg (Negative) 10/08/18 Unknown Urine WBC (Auto) 1.0 /HPF (0.0-6.0) 10/08/18 Unknown Urine RBC (Auto) 2.0 /HPF (0.0-6.0) 10/08/18 Unknown Active Medications - Current Medications Current Medications: Generic Name Dose Route Start Last Admin Trade Name Freq PRN Reason Stop Dose Admin Acetaminophen 650 mg 10/06/18 02:37 Tylenol PO Q4H PRN Pain MILD(1-3)/Fever >100.5/ALFONSO Aspirin 81 mg 10/06/18 10:00 10/12/18 08:30 Baby Aspirin PO 81 mg QDAY MILLI Administration Atorvastatin Calcium 40 mg 10/06/18 22:00 10/11/18 21:52 Lipitor PO 40 mg QHS MILLI Administration Clopidogrel Bisulfate 75 mg 10/07/18 10:00 10/12/18 08:31 Plavix PO 75 mg QDAY MILLI Administration Enoxaparin Sodium 80 mg 10/08/18 11:00 10/12/18 08:31 Lovenox SUB-Q 80 mg BID [facility] Administration Metoprolol Tartrate 12.5 mg 10/06/18 22:00 10/11/18 21:53 Lopressor PO Not Given BID MILLI Ondansetron HCl 4 mg 10/06/18 02:37 Zofran IV Q4H PRN Nausea And Vomiting Oxycodone/Acetaminophen 1 tab 10/06/18 02:37 10/07/18 17:27 Percocet 5/325 PO 1 tab Q6H PRN Administration Pain, Moderate (4-6) Risperidone 1 mg 10/09/18 22:00 10/11/18 21:52 Risperdal PO 1 mg HS MILLI Administration Sodium Chloride 10 ml 10/06/18 10:00 10/12/18 08:38 Sodium Chloride Flush Syringe 10 Ml IV 10 ml BID MILLI Administration Sodium Chloride 10 ml 10/06/18 02:37 Sodium Chloride Flush Syringe 10 Ml IV PRN PRN LINE FLUSH Warfarin Sodium 7.5 mg 10/10/18 17:00 10/11/18 16:36 Coumadin PO 7.5 mg DAILY@1700 MILLI Administration Nutrition/Malnutrition Assess - Dietary Evaluation Nutrition/Malnutrition Findings: Nutrition Notes Start: 10/07/18 15:02 Freq: Status: Active Protocol: Document 10/07/18 15:02 RM (Rec: 10/07/18 15:03 RM [id number]) Nutrition Notes Need for Assessment generated from: Education Initial or Follow up Brief Note Subjective/Other Information Screened for Coumadin/Vit K diet education. Pt already familiar with diet. Nutrition Intervention Revisit per MD consult or patient Sign Off request:
[2018-10-12] MEDS: LOPRESSOR PO SCH ×2 (12:15→21:57)
--- NOTE | 2018-10-12 12:20 | Progress Note ---
Subjective - Reason for Consult Consult date: 10/12/18 Reason for consult: Psychiatry Follow-up - Chief Complaint Chief complaint: "'I'm well today" Patient is a 68-year-old male with a past medical history of cardiac valve replacement and COPD presents from [facility] with complaints of chest pain. Today the patient is cam and cooperative during the assessment. He is more organized and lucid. He denies "reptiles" are taking over. He stated he feel good overall. He denies Si/HI's and AVH's. The patient denies any side effects of his medication. Mental Status Exam - Vital signs Last Vital Signs Temp 97.9 F 10/12/18 07:27 Pulse 64 10/12/18 12:15 Resp 20 10/12/18 07:27 BP 104/69 10/12/18 12:15 Pulse Ox 98 10/12/18 07:27 - Exam Narrative exam: MSE: Appearance: calm, cooperative Behavior: regular eye contact Speech: regular rate and loud tone Mood: "okay" Affect: congruent to mood Thought Process: more organized Thought Content: denies SI/HI's and AVH's Motor Activity: sitting up in the bed Cognition: A/O x3 Insight: fair Judgment: fair Assessment and Plan Impression: Unspecified Psychosis. Today the patient is calm and cooperative during the assessment. The patient's psychosis has resolved. Recommendation/Plan: Continue 1013 and start Risperdal 1 mg PO HS for psychosis. Discussed possible metabolic side effects of Risperdal with the patient. Dispo: The patient can follow up with [facility] for outpatient psy services. Will staff with Dr Kaur.
[2018-10-12 15:37] LABS: INR 1.8 (0.87-1.13)
--- NOTE | 2018-10-12 16:47 | Progress Note ---
Assessment and Plan Assessment and plan: Patient is 68-year-old with COPD , mechanical aortic valve replacement. He presented to the emergency department with chest pain. Initial Troponin was 0.802, elevated. EKG was abnormal. He was diagnosed with NSTEMI. Started on heparin drip and admitted. Cardiology was consulted. Left heart cardiac cath was done on 10/06/2018 showing stenosis status post 2 stents placed: one drug eluting stent in mid RCA and another drug eluting and distal RCA. Cardiology recommends aspirin 81 mg,Plavix 75 mg and Coumadin therapy. Continued on 1012 because of psychosis . Chest pain resolved after PCI. Patient has been on Coumadin with Lovenox bridge, most recent INR 1.80. He has been awaiting discharge to psych facility for psychosis however 1012 rescinded today. to dc home when INR greater than 2. To follow cardiology as outpatient. Acute NSTEMI s/p [facility] with PCI to RCA X 2, Discussed with cardiology Was stable cardiac rouse but not discharged because on 1012 hold due to psychosis. Psychosis Patient came here from [facility] on 1012, rescinded today CAD s/p PCI Mechanical aortic valve On Coumadin and Lovenox bridge COPD stable Fever. Resolved Blood cultures no growth Full code status. Dispo: Discharge home on Aspirin, Plavix, Coumadin when INR>2 History Interval history: Patient with NSTEMI Had cardiac cath 10/06 s/p PCI No more fever No chest pain 1012 rescinded today awaiting therapeutic INR Hospitalist Physical - Physical exam Narrative exam: GEN: Not in acute distress, lying in bed HEENT: Normocephalic, atraumatic, Neck: supple, No JVD Heart:S1 and S2 reg, click from mechanical aortic valve Lungs: Clear to auscultation bilat, no crackles, no wheeze Abd:soft, non tender, non distended, normal bowel sounds Ext: No edema, no clubbing, no cyanosis Neuro:Awake,alert, no focal signs, moves all ext Skin:No rash Psych:psychosis - Constitutional Vitals: Temp Pulse Resp BP Pulse Ox 97.9 F 84 20 104/72 97 10/12/18 13:19 10/12/18 13:20 10/12/18 13:19 10/12/18 13:20 10/12/18 13:20 General appearance: Present: no acute distress Results - Labs CBC & Chem 7: 10/11/18 04:41 10/11/18 04:41 Labs: Laboratory Last Values WBC 9.1 K/mm3 (4.5-11.0) 10/11/18 04:41 RBC 4.47 M/mm3 (3.65-5.03) 10/11/18 04:41 Hgb 13.7 gm/dl (11.8-15.2) 10/11/18 04:41 Hct 40.7 % (35.5-45.6) 10/11/18 04:41 MCV 91 fl (84-94) 10/11/18 04:41 MCH 31 pg (28-32) 10/11/18 04:41 MCHC 34 % (32-34) 10/11/18 04:41 RDW 14.6 % (13.2-15.2) 10/11/18 04:41 Plt Count 355 K/mm3 (140-440) 10/11/18 04:41 Lymph % (Auto) 6.6 % (13.4-35.0) L 10/07/18 06:25 [place] % (Auto) 10.3 % (0.0-7.3) H 10/07/18 06:25 Eos % (Auto) 2.0 % (0.0-4.3) 10/07/18 06:25 Baso % (Auto) 1.3 % (0.0-1.8) 10/07/18 06:25 Lymph # 0.5 K/mm3 (1.2-5.4) L 10/07/18 06:25 [place] # 0.8 K/mm3 (0.0-0.8) 10/07/18 06:25 Eos # 0.2 K/mm3 (0.0-0.4) 10/07/18 06:25 Baso # 0.1 K/mm3 (0.0-0.1) 10/07/18 06:25 Seg Neutrophils % 79.8 % (40.0-70.0) H 10/07/18 06:25 Seg Neutrophils # 6.5 K/mm3 (1.8-7.7) 10/07/18 06:25 PT 22.1 Sec. (12.2-14.9) H 10/12/18 15:05 INR 1.80 (0.87-1.13) H 10/12/18 15:05 APTT 34.8 Sec. (24.2-36.6) 10/06/18 00:09 Activated Clotting Time 136 (74-137) 10/06/18 15:09 Heparin Anti-Xa Level 0.35 U.I./ml (0.3-0.7) 10/06/18 08:01 Sodium 135 mmol/L (137-145) L 10/11/18 04:41 Potassium 4.6 mmol/L (3.6-5.0) 10/11/18 04:41 Chloride 99.5 mmol/L (98-107) 10/11/18 04:41 Carbon Dioxide 25 mmol/L (22-30) 10/11/18 04:41 Anion Gap 15 mmol/L 10/11/18 04:41 BUN 14 mg/dL (9-20) 10/11/18 04:41 Creatinine 0.8 mg/dL (0.8-1.5) 10/11/18 04:41 Estimated GFR > 60 ml/min 10/11/18 04:41 BUN/Creatinine Ratio 18 % 10/11/18 04:41 Glucose 90 mg/dL (75-100) 10/11/18 04:41 Calcium 8.9 mg/dL (8.4-10.2) 10/11/18 04:41 Total Creatine Kinase 44 units/L (55-170) L 10/07/18 06:25 CK-MB (CK-2) 1.2 ng/mL (0.0-4.0) 10/07/18 06:25 CK-MB (CK-2) Rel Index 2.7 (0-4) 10/07/18 06:25 Troponin T 0.402 ng/mL (0.00-0.029) H* D 10/07/18 06:25 Triglycerides 57 mg/dL (2-149) 10/06/18 00:09 Cholesterol 156 mg/dL (50-199) 10/06/18 00:09 LDL Cholesterol Direct 106 mg/dL (50-130) 10/06/18 00:09 HDL Cholesterol 46 mg/dL (40-59) 10/06/18 00:09 Cholesterol/HDL Ratio 3.39 % 10/06/18 00:09 Urine Color Yellow (Yellow) 10/08/18 Unknown Urine Turbidity Clear (Clear) 10/08/18 Unknown Urine pH 5.0 (5.0-7.0) 10/08/18 Unknown Ur Specific [place] 1.012 (1.003-1.030) 10/08/18 Unknown Urine Protein <15 mg/dl mg/dL (Negative) 10/08/18 Unknown Urine Glucose (UA) Neg mg/dL (Negative) 10/08/18 Unknown Urine Ketones Neg mg/dL (Negative) 10/08/18 Unknown Urine Blood Sm (Negative) 10/08/18 Unknown Urine Nitrite Neg (Negative) 10/08/18 Unknown Urine Bilirubin Neg (Negative) 10/08/18 Unknown Urine Urobilinogen < 2.0 mg/dL (<2.0) 10/08/18 Unknown Ur Leukocyte Esterase Neg (Negative) 10/08/18 Unknown Urine WBC (Auto) 1.0 /HPF (0.0-6.0) 10/08/18 Unknown Urine RBC (Auto) 2.0 /HPF (0.0-6.0) 10/08/18 Unknown Active Medications - Current Medications Current Medications: Generic Name Dose Route Start Last Admin Trade Name Freq PRN Reason Stop Dose Admin Acetaminophen 650 mg 10/06/18 02:37 Tylenol PO Q4H PRN Pain MILD(1-3)/Fever >100.5/ALFONSO Aspirin 81 mg 10/06/18 10:00 10/12/18 11:52 Baby Aspirin PO Not Given QDAY [facility] Atorvastatin Calcium 40 mg 10/06/18 22:00 10/11/18 21:52 Lipitor PO 40 mg QHS [facility] Administration Clopidogrel Bisulfate 75 mg 10/07/18 10:00 10/12/18 12:16 Plavix PO Not Given QDAY [facility] Enoxaparin Sodium 80 mg 10/08/18 11:00 10/12/18 12:16 Lovenox SUB-Q Not Given BID [facility] Metoprolol Tartrate 12.5 mg 10/06/18 22:00 10/12/18 12:15 Lopressor PO Not Given BID [facility] Ondansetron HCl 4 mg 10/06/18 02:37 Zofran IV Q4H PRN Nausea And Vomiting Oxycodone/Acetaminophen 1 tab 10/06/18 02:37 10/07/18 17:27 Percocet 5/325 PO 1 tab Q6H PRN Administration Pain, Moderate (4-6) Pantoprazole Sodium 40 mg 10/12/18 16:00 Protonix PO QDAY MILLI Risperidone 1 mg 10/09/18 22:00 10/11/18 21:52 Risperdal PO 1 mg HS MILLI Administration Sodium Chloride 10 ml 10/06/18 10:00 10/12/18 12:16 Sodium Chloride Flush Syringe 10 Ml IV Not Given BID MILIL Sodium Chloride 10 ml 10/06/18 02:37 Sodium Chloride Flush Syringe 10 Ml IV PRN PRN LINE FLUSH Warfarin Sodium 7.5 mg 10/10/18 17:00 10/11/18 16:36 Coumadin PO 7.5 mg DAILY@1700 MILLI Administration Nutrition/Malnutrition Assess - Dietary Evaluation Nutrition/Malnutrition Findings: Nutrition Notes Start: 10/07/18 15:02 Freq: Status: Active Protocol: Document 10/07/18 15:02 RM (Rec: 10/07/18 15:03 [id number]) Nutrition Notes Need for Assessment generated from: Education Initial or Follow up Brief Note Subjective/Other Information Screened for Coumadin/Vit K diet education. Pt already familiar with diet. Nutrition Intervention Revisit per MD consult or patient Sign Off request:
[2018-10-12] MEDS: COUMADIN PO SCH (17:28)
[2018-10-12] MEDS: PROTONIX PO SCH (17:28)
[2018-10-12] MEDS: RisperDAL PO SCH (21:56)
[2018-10-13 07:01] LABS: INR 1.95 (0.87-1.13)
[2018-10-13] MEDS: PROTONIX PO SCH (09:55)
[2018-10-13] MEDS: PLAVIX PO SCH (09:55)
[2018-10-13] MEDS: BABY ASPIRIN PO SCH (09:55)
[2018-10-13] MEDS: LOPRESSOR PO SCH ×2 (09:56→23:36)
[2018-10-13] MEDS: SODIUM CHLORIDE FLUSH SYRINGE 10 ML IV SCH ×2 (09:56→23:37)
[2018-10-13] MEDS: LOVENOX SUB-Q SCH ×2 (09:59→23:37)
--- NOTE | 2018-10-13 12:57 | Discharge Summary ---
Providers - Providers Date of Admission: 10/06/18 02:17 Attending physician: ABIMAEL GONZALEZ MD 10/06/18 Consult to Cardiac Rehabilitation [CONS] Routine Reason For Exam: post pci 10/07/18 09:41 Consult to Case Management [CONS] Routine Services Needed at Discharge: Other Notified:: case management Comment:: dc back to [facility] 10/07/18 10:48 Consult to Mental Health [CONS] Routine Reason For Exam: Psychosis on 1013 Place consult to:: Psych Notified:: Jerilyn TERRELL Phone number called:: Ext. [phone] Was contact made?: Yes If yes, spoke with:: [facility] Time called:: 11:10 Hospitalization Condition: Fair Hospital course: Patient is 68-year-old with COPD , mechanical aortic valve replacement. He presented to the emergency department with chest pain. Initial Troponin was 0.802, elevated. EKG was abnormal. He was diagnosed with NSTEMI. Started on heparin drip and admitted. Cardiology was consulted. Left heart cardiac cath was done on 10/06/2018 showing stenosis status post 2 stents placed: one drug eluting stent in mid RCA and another drug eluting and distal RCA. Cardiology recommends aspirin 81 mg,Plavix 75 mg and Coumadin therapy. Continued on 1013 because of psychosis . Chest pain resolved after PCI. Patient has been on Coumadin with Lovenox bridge, most recent INR 1.80. He was managed by psychiatry for acute psychosis. His medications were optimized.Psychosis resolved, and 1013 was rescinded. Fever workup was negative, blood cultures were no growth. The patient's INR is still subtherapeutic. It supposed to be 2.5-3.5. Therefore he is being discharged on Lovenox bridge and Coumadin. Home health has been set up for him to ensure compliance with Lovenox and Coumadin. The patient is to follow-up at [facility] for INR check in 2-3 days. Diagnosis Acute NSTEMI CAD Psychosis Mechanical aortic valve hypercoaguable state COPD Disposition: DC/TX-06 HOME UNDER HOME [facility] Time spent for discharge: 33 mins Core Measure Documentation - Palliative Care Palliative Care/ Comfort Measures: Not Applicable - Core Measures Any of the following diagnoses?: acute ID - Acute ID Discharge Requirements Aspirin at discharge: Yes ZAIN/ARB for LVSD if EF <40%: Not Applicable Beta jade at discharge: Yes Statin for LDL = or >100 mg/dl on DC: Yes Exam - Constitutional Vitals: Temp Pulse Resp BP Pulse Ox 98.3 F 92 H 18 103/58 97 10/13/18 07:37 10/13/18 10:00 10/13/18 10:00 10/13/18 07:37 10/13/18 07:37 General appearance: Present: no acute distress, well-nourished - EENT Eyes: Present: PERRL ENT: hearing intact, clear oral mucosa - Neck Neck: Present: supple, normal ROM - Respiratory Respiratory effort: normal Respiratory: bilateral: CTA - Cardiovascular Heart Sounds: Present: S1 & S2. Absent: rub, click - Extremities Extremities: pulses symmetrical, No edema Peripheral Pulses: within normal limits - Abdominal General gastrointestinal: Present: soft, non-tender, non-distended, normal bowel sounds Male genitourinary: Present: normal - Integumentary Integumentary: Present: clear, warm, dry - Musculoskeletal Musculoskeletal: gait normal, strength equal bilaterally - Psychiatric Psychiatric: appropriate mood/affect, intact judgment & insight - Neurologic Neurologic: CNII-XII intact, moves all extremities Plan Follow up with: TARIQ GILMORE [Other] - 7 Days VERA MCNAMARA MD [Staff Physician] - 7 Days (Follow up in our [place] office with Dr. Mcnamara on 10/23/2018 @ 1:30PM. ) Forms: Warfarin Discharge Instruction Prescriptions: AtorvaSTATin [Lipitor] 40 mg PO QHS #30 tablet Aspirin [Aspirin BABY CHEW TAB] 81 mg PO QDAY #30 tab.chew Metoprolol [Lopressor TAB] 12.5 mg PO BID #60 tablet Enoxaparin [Lovenox] 80 mg SUB-Q BID #10 syringe Clopidogrel [Plavix] 75 mg PO QDAY #30 tablet risperiDONE [RisperDAL] 1 mg PO HS #30 tablet Warfarin Sodium 15 mg PO DAILY 30 Days tablet
[2018-10-13] MEDS ORDERED: COUMADIN PO SCH (17:00)
[2018-10-13] MEDS: COUMADIN PO SCH (18:42)
[2018-10-13] MEDS: RisperDAL PO SCH (23:36)
[2018-10-14 06:28] LABS: INR 1.89 (0.87-1.13)
[2018-10-14] MEDS: PLAVIX PO SCH (09:06)
[2018-10-14] MEDS: LOVENOX SUB-Q SCH (09:07)
[2018-10-14] MEDS: BABY ASPIRIN PO SCH (09:07)
[2018-10-14] MEDS: PROTONIX PO SCH (09:07)
[2018-10-14] MEDS: LOPRESSOR PO SCH (09:07)
[2018-10-14] MEDS: SODIUM CHLORIDE FLUSH SYRINGE 10 ML IV SCH (09:08)
--- NOTE | 2018-10-14 10:30 | Progress Note ---
Assessment and Plan Assessment and plan: Patient is 68-year-old with COPD , mechanical aortic valve replacement. He presented to the emergency department with chest pain. Initial Troponin was 0.802, elevated. EKG was abnormal. He was diagnosed with NSTEMI. Started on heparin drip and admitted. Cardiology was consulted. Left heart cardiac cath was done on 10/06/2018 showing stenosis status post 2 stents placed: one drug eluting stent in mid RCA and another drug eluting and distal RCA. Cardiology recommends aspirin 81 mg,Plavix 75 mg and Coumadin therapy. Continued on 1013 because of psychosis . Chest pain resolved after PCI. Patient has been on Coumadin with Lovenox bridge, most recent INR 1.80. He was managed by psychiatry for acute psychosis. His medications were optimized.Psychosis resolved, and 1013 was rescinded. Fever workup was negative, blood cultures were no growth. The patient's INR is still subtherapeutic. It supposed to be 2.5-3.5. Therefore he is being discharged on Lovenox bridge and Coumadin. Home health has been set up for him to ensure compliance with Lovenox and Coumadin. The patient is to follow-up at [facility] for INR check in 2-3 days after dc He is awaiting [facility] placement Diagnosis Acute NSTEMI CAD Psychosis Mechanical aortic valve hypercoaguable state COPD History Interval history: Review of systems Constitutional: No fevers, no malaise, no joint pains CVS: No chest pain, no orthopnea, no dyspnea on exertion, no pedal edema GI: No abdominal pain, no diarrhea, no vomiting, no constipation Respiratory: No shortness of breath, no wheezing, no coughing Hospitalist Physical - Physical exam Narrative exam: General.: Appears well, no distress, nontoxic HEENT: Moist mucous membranes, extraocular muscles intact, no lymphadenopathy Neck: supple Cardiac: S1-S2 heard Lungs: clear to auscultation bilaterally Abdomen: soft , nontender, nondistended, bowel sounds positive Extremities: no edema clubbing or cyanosis Skin: no rash or lesions Neurologic: no gross focal deficits Psych: calm, and cooperative strange personality - Constitutional Vitals: Temp Pulse Resp BP Pulse Ox 97.7 F 69 20 91/65 97 10/14/18 07:30 10/14/18 09:07 10/14/18 07:30 10/14/18 09:07 10/14/18 08:25 General appearance: Present: no acute distress, well-nourished Results - Labs CBC & Chem 7: 10/11/18 04:41 10/11/18 04:41 Labs: Laboratory Last Values WBC 9.1 K/mm3 (4.5-11.0) 10/11/18 04:41 RBC 4.47 M/mm3 (3.65-5.03) 10/11/18 04:41 Hgb 13.7 gm/dl (11.8-15.2) 10/11/18 04:41 Hct 40.7 % (35.5-45.6) 10/11/18 04:41 MCV 91 fl (84-94) 10/11/18 04:41 MCH 31 pg (28-32) 10/11/18 04:41 MCHC 34 % (32-34) 10/11/18 04:41 RDW 14.6 % (13.2-15.2) 10/11/18 04:41 Plt Count 355 K/mm3 (140-440) 10/11/18 04:41 Lymph % (Auto) 6.6 % (13.4-35.0) L 10/07/18 06:25 [place] % (Auto) 10.3 % (0.0-7.3) H 10/07/18 06:25 Eos % (Auto) 2.0 % (0.0-4.3) 10/07/18 06:25 Baso % (Auto) 1.3 % (0.0-1.8) 10/07/18 06:25 Lymph # 0.5 K/mm3 (1.2-5.4) L 10/07/18 06:25 [place] # 0.8 K/mm3 (0.0-0.8) 10/07/18 06:25 Eos # 0.2 K/mm3 (0.0-0.4) 10/07/18 06:25 Baso # 0.1 K/mm3 (0.0-0.1) 10/07/18 06:25 Seg Neutrophils % 79.8 % (40.0-70.0) H 10/07/18 06:25 Seg Neutrophils # 6.5 K/mm3 (1.8-7.7) 10/07/18 06:25 PT 23.0 Sec. (12.2-14.9) H 10/14/18 05:58 INR 1.89 (0.87-1.13) H 10/14/18 05:58 APTT 34.8 Sec. (24.2-36.6) 10/06/18 00:09 Activated Clotting Time 136 (74-137) 10/06/18 15:09 Heparin Anti-Xa Level 0.35 U.I./ml (0.3-0.7) 10/06/18 08:01 Sodium 135 mmol/L (137-145) L 10/11/18 04:41 Potassium 4.6 mmol/L (3.6-5.0) 10/11/18 04:41 Chloride 99.5 mmol/L (98-107) 10/11/18 04:41 Carbon Dioxide 25 mmol/L (22-30) 10/11/18 04:41 Anion Gap 15 mmol/L 10/11/18 04:41 BUN 14 mg/dL (9-20) 10/11/18 04:41 Creatinine 0.8 mg/dL (0.8-1.5) 10/11/18 04:41 Estimated GFR > 60 ml/min 10/11/18 04:41 BUN/Creatinine Ratio 18 % 10/11/18 04:41 Glucose 90 mg/dL (75-100) 10/11/18 04:41 Calcium 8.9 mg/dL (8.4-10.2) 10/11/18 04:41 Total Creatine Kinase 44 units/L (55-170) L 10/07/18 06:25 CK-MB (CK-2) 1.2 ng/mL (0.0-4.0) 10/07/18 06:25 CK-MB (CK-2) Rel Index 2.7 (0-4) 10/07/18 06:25 Troponin T 0.402 ng/mL (0.00-0.029) H* D 10/07/18 06:25 Triglycerides 57 mg/dL (2-149) 10/06/18 00:09 Cholesterol 156 mg/dL (50-199) 10/06/18 00:09 LDL Cholesterol Direct 106 mg/dL (50-130) 10/06/18 00:09 HDL Cholesterol 46 mg/dL (40-59) 10/06/18 00:09 Cholesterol/HDL Ratio 3.39 % 10/06/18 00:09 Urine Color Yellow (Yellow) 10/08/18 Unknown Urine Turbidity Clear (Clear) 10/08/18 Unknown Urine pH 5.0 (5.0-7.0) 10/08/18 Unknown Ur Specific [place] 1.012 (1.003-1.030) 10/08/18 Unknown Urine Protein <15 mg/dl mg/dL (Negative) 10/08/18 Unknown Urine Glucose (UA) Neg mg/dL (Negative) 10/08/18 Unknown Urine Ketones Neg mg/dL (Negative) 10/08/18 Unknown Urine Blood Sm (Negative) 10/08/18 Unknown Urine Nitrite Neg (Negative) 10/08/18 Unknown Urine Bilirubin Neg (Negative) 10/08/18 Unknown Urine Urobilinogen < 2.0 mg/dL (<2.0) 10/08/18 Unknown Ur Leukocyte Esterase Neg (Negative) 10/08/18 Unknown Urine WBC (Auto) 1.0 /HPF (0.0-6.0) 10/08/18 Unknown Urine RBC (Auto) 2.0 /HPF (0.0-6.0) 10/08/18 Unknown Active Medications - Current Medications Current Medications: Generic Name Dose Route Start Last Admin Trade Name Freq PRN Reason Stop Dose Admin Acetaminophen 650 mg 10/06/18 02:37 Tylenol PO Q4H PRN Pain MILD(1-3)/Fever >100.5/ALFONSO Aspirin 81 mg 10/06/18 10:00 10/14/18 09:07 Baby Aspirin PO 81 mg QDAY MILLI Administration Atorvastatin Calcium 40 mg 10/06/18 22:00 10/13/18 23:36 Lipitor PO 40 mg QHS MILLI Administration Clopidogrel Bisulfate 75 mg 10/07/18 10:00 10/14/18 09:06 Plavix PO 75 mg QDAY MILLI Administration Enoxaparin Sodium 80 mg 10/08/18 11:00 10/14/18 09:07 Lovenox SUB-Q 80 mg BID MILLI Administration Metoprolol Tartrate 12.5 mg 10/06/18 22:00 10/14/18 09:07 Lopressor PO Not Given BID MILLI Ondansetron HCl 4 mg 10/06/18 02:37 Zofran IV Q4H PRN Nausea And Vomiting Oxycodone/Acetaminophen 1 tab 10/06/18 02:37 10/07/18 17:27 Percocet 5/325 PO 1 tab Q6H PRN Administration Pain, Moderate (4-6) Pantoprazole Sodium 40 mg 10/12/18 16:00 10/14/18 09:07 Protonix PO 40 mg QDAY MILLI Administration Risperidone 1 mg 10/09/18 22:00 10/13/18 23:36 Risperdal PO 1 mg HS MILLI Administration Sodium Chloride 10 ml 10/06/18 10:00 10/14/18 09:08 Sodium Chloride Flush Syringe 10 Ml IV 10 ml BID MILLI Administration Sodium Chloride 10 ml 10/06/18 02:37 Sodium Chloride Flush Syringe 10 Ml IV PRN PRN LINE FLUSH Warfarin Sodium 10 mg 10/14/18 17:00 Coumadin PO DAILY@1700 [facility] Warfarin Sodium 2.5 mg 10/14/18 17:00 Coumadin PO DAILY@1700 [facility] Nutrition/Malnutrition Assess - Dietary Evaluation Nutrition/Malnutrition Findings: Nutrition Notes Start: 10/07/18 15:02 Freq: Status: Active Protocol: Document 10/13/18 15:18 RD (Rec: 10/13/18 15:30 RD [id number]) Co-Sign 10/13/18 15:18 NHALL Nutrition Notes Need for Assessment generated from: LOS Initial or Follow up Brief Note Subjective/Other Information RD screen for LOS. Pt consuming an 100% of meals. Nutrition Intervention Revisit per MD consult or patient Sign Off request:
[2018-10-14 14:16] VITALS: BP 126/70
[2018-10-14] MEDS ORDERED: COUMADIN PO SCH ×2 (17:00)
== END 2018-10-14 16:20 | disposition home health service (06) | DRG 246 ==
LOC: ED 23:35 → EEVIPCON 10-06 02:17 → 4A 10-06 02:17 → 2B-ACE 10-09 15:05
PROVIDERS: ADMIT Internal Medicine; ATTEND Internal Medicine
PROC: 027035Z Dilation of Coronary Artery, One Artery with Two Drug-eluting Intraluminal Devices, Percutaneous Approach (ICD-10-PCS; principal; 2018-10-06)
PROC: 4A023N7 Measurement of Cardiac Sampling and Pressure, Left Heart, Percutaneous Approach (ICD-10-PCS; 2018-10-06)
PROC: B2111ZZ Fluoroscopy of Multiple Coronary Arteries using Low Osmolar Contrast (ICD-10-PCS; 2018-10-06)
PROC: B2151ZZ Fluoroscopy of Left Heart using Low Osmolar Contrast (ICD-10-PCS; 2018-10-06)
PROC: B241ZZ3 Ultrasonography of Multiple Coronary Arteries, Intravascular (ICD-10-PCS; 2018-10-06)
DX: I21.4 Non-ST elevation (NSTEMI) myocardial infarction (principal); I50.31 Acute diastolic (congestive) heart failure; D68.59 Other primary thrombophilia; I25.10 Atherosclerotic heart disease of native coronary artery without angina pectoris; J44.9 Chronic obstructive pulmonary disease, unspecified; F29 Unspecified psychosis not due to a substance or known physiological condition; R50.9 Fever, unspecified; D69.6 Thrombocytopenia, unspecified; Z96.649 Presence of unspecified artificial hip joint; F17.200 Nicotine dependence, unspecified, uncomplicated; F12.90 Cannabis use, unspecified, uncomplicated; Z82.49 Family history of ischemic heart disease and other diseases of the circulatory system; Z95.2 Presence of prosthetic heart valve; Z88.0 Allergy status to penicillin; Z88.1 Allergy status to other antibiotic agents; Z79.899 Other long term (current) drug therapy
CPT/HCPCS: 36415; 71045; 80048; 80061; 81001; 82550; 82553; 84484; 85025; 85027; 85347; 85520; 85610; 85730; 87040; 87086; 92928; 92978; 93005; 93010; 93306; 93458; G0378; A9270-GY; C1753; C1769; C1874; C1887; C1894; C9600; J1644; J1650; J2250; J3010; J7040; Q9967